=== PATIENT | female | born 1960 | race Caucasian/White ===

== ENCOUNTER 2019-10-04 10:20 | Emergency (ER) | payer OTHER, SELFPAY ==
--- NOTE | ~2019-10-04 | XR_ITS ---
XR ribs RT 2V w CXR 2V DATE: 10/04/2019 11:59 INDICATION: Fall. Right rib pain TECHNIQUE: PA and lateral views. 3 views of the right ribs. COMPARISON: None FINDINGS: Normal heart size. No hilar or mediastinal enlargement. Bilateral apical scarring. No pulmo nary infiltrate or consolidation, pleural effusion or pulmonary vascular congestion or pneumothorax. No recent right rib fracture is evident. There is evidence of old healed mild rib fracture deformitie s. IMPRESSION: No active cardiopulmonary disease No recent rib fracture is evident Reviewed, dictated and finalized at location A. 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
[2019-10-04 10:31] VITALS: BP 133/91; PULSE 80; RESP 16; TEMP 36.4; O2SAT 100
--- NOTE | 2019-10-04 12:30 | ED.FALL ---
HPI - Fall General Chief Complaint: Fall Stated Complaint: RIB PAIN Time Seen by Provider: 10/04/19 12:06 Source: patient and RN notes reviewed Mode of arrival: ambulatory Limitations: no limitations History of Present Illness HPI Narrative: Pt is a 59 y/o female who presents to the ED with c/o worsening rt lower rib pain secondary to a fall happening 4 days ago. She notes that she tripped and fell 4 days ago in her home. Pt states that she was able to get up and walk after the fall. She notes that she developed a mild pain in her rt lower ribs the following day, and states that her pain has constantly worsened ever since. Pt notes that her pain is aggravated with coughing. She states that she has been taking Ibuprofen for her pain. Pt currently denies any fever, chills, nausea, or vomiting. MD complaint: other (Rib pain secondary to fall) Onset (ago): day(s) (4) Fall from: standing Place fall occurred: home Context: tripped/slipped Location of injury: chest (rt lower ribs) Associated symptoms (after fall): chest pain (rt lower rib pain) Related Data Home Medications Medication Instructions Recorded Confirmed atorvastatin 10/04/19 calcium carbonate-vitamin D3 tablet PO 10/04/19 insulin glargine [Basaglar KwikPen unit SUBCUT 10/04/19 U-100 Insulin] insulin lispro [Admelog U-100 10/04/19 Insulin lispro] Allergies Allergy/AdvReac Type Severity Reaction Status Date / Time No Known Allergies Allergy Mild Unverified 04/19/06 14:27 Review of Systems Review of Systems: All systems reviewed & are unremarkable except as noted in HPI and below Constitutional: Constitutional: Denies chills and Denies fever(s) Cardiovascular: Cardiovascular: Reports chest pain (rt lower rib pain) Gastrointestinal: Gastrointestinal: Denies nausea and Denies vomiting PMFSH Past Medical History Medical History Arthritis Brain tumor COPD (chronic obstructive pulmonary disease) Depression Diabetes Emphysema of lung GERD (gastroesophageal reflux disease) HLD (hyperlipidemia) Surgical History Surgical History Hx of craniotomy Hx of tonsillectomy Social History Social History (Updated 10/04/19 @ 13:10 by Arjun Bailey) Smoking packs per day: 0.5 Smoking cigarettes per day: 10.0 Smoking status: Current every day smoker Exam Narrative: Exam Narrative: General appearance: Well-developed, well-nourished Skin: Normal color Head: Normocephalic, nontraumatic Eyes: Clear conjunctiva ENT: Oropharynx normal, ears normal, nose normal Neck: Supple, nontender Chest and respiratory: Airway patent, no respiratory distress, no accessory muscle use, right lower ribs tenderness, no bruises, no swelling or rash Heart: Regular rate/rhythm Abdomen: Soft, nontender, no organomegaly, quiet bowel sounds Vascular: Normal peripheral pulses, normal capillary refill. 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
[2019-10-04 13:37] VITALS: BP 132/74; PULSE 72; RESP 16; O2SAT 100
== END 2019-10-04 13:37 | disposition home or self-care (01) ==
PROVIDERS: Emergency Provider Emergency Medicine; PCP Internal Medicine Gastroenterology
DX: S20.211A Contusion of right front wall of thorax, initial encounter (principal); M19.90 Unspecified osteoarthritis, unspecified site; J43.9 Emphysema, unspecified; E11.9 Type 2 diabetes mellitus without complications; K21.9 Gastro-esophageal reflux disease without esophagitis; E78.5 Hyperlipidemia, unspecified; Z79.4 Long term (current) use of insulin; F17.210 Nicotine dependence, cigarettes, uncomplicated; W01.0XXA Fall on same level from slipping, tripping and stumbling without subsequent striking against object, initial encounter
CPT/HCPCS: 71045; 71101; 99283

== ENCOUNTER 2020-12-21 14:16 | Emergency (ER) | payer OTHER, SELFPAY ==
[2020-12-21 14:41] VITALS: BP 101/54; PULSE 68; RESP 18; TEMP 36.5; O2SAT 98
--- NOTE | 2020-12-21 15:53 | ED.GENADULT ---
HPI - General Adult General Chief complaint: Extremity Injury, Lower Stated complaint: left left/hip pain Time Seen by Provider: 12/21/20 15:20 Source: patient and RN notes reviewed Mode of arrival: ambulatory Limitations: no limitations History of Present Illness HPI narrative: Patient is 60 years old white female presents with pain started at her left foot, 1 day later at the back of left calf 1 day later at the left hip. Sharp stabbing. Patient reported to been doing physical exercise lately. Patient denies any fever, chills, nausea, vomiting, chest pain, shortness of breath. Related Data Home Medications Medication Instructions Recorded Confirmed atorvastatin 10/04/19 calcium carbonate-vitamin D3 tablet PO 10/04/19 insulin glargine [Basaglar KwikPen unit SUBCUT 10/04/19 U-100 Insulin] insulin lispro [Admelog U-100 10/04/19 Insulin lispro] insulin lispro 100 unit/mL 1 unit SUBCUT QAM 08/07/20 subcutaneous pen Allergies Allergy/AdvReac Type Severity Reaction Status Date / Time No Known Allergies Allergy Mild Verified 12/21/20 15:17 Review of Systems Review of Systems: Narrative: CONSTITUTIONAL: Denies fever, chills, or sweats. EYES: Denies visual changes, redness, or discharge. ENT: Denies rhinorrhea, congestion, sore throat, or otalgia. CARDIOVASCULAR: Denies chest pain, palpitations, or edema. RESPIRATORY: Denies cough or dyspnea. GASTROINTESTINAL: Denies abdominal pain, nausea, vomiting, or diarrhea. GENITOURINARY: Denies dysuria or hematuria. SKIN: Denies rash or itching. MUSCULOSKELETAL: Denies back pain, joint pain, or myalgia. NEUROLOGIC: Denies headache, numbness, or weakness. PSYCHIATRIC: Denies anxiety or depression. [facility] Past Medical History Medical History Arthritis Brain tumor COPD (chronic obstructive pulmonary disease) Depression Diabetes Emphysema of lung GERD (gastroesophageal reflux disease) HLD (hyperlipidemia) Surgical History Surgical History Hx of craniotomy Hx of tonsillectomy Social History Social History Smoking packs per day: 0.5 Smoking cigarettes per day: 10.0 Smoking status: Current every day smoker Second hand tobacco smoke exposure: No Alcohol intake: never Substance use: never Gender identity (if verbalized by the patient): Female Exam Narrative: Exam Narrative: General appearance: Well-developed, well-nourished Skin: Normal color Head: Normocephalic, nontraumatic Eyes: Clear conjunctiva ENT: Oropharynx normal, ears normal, nose normal Neck: Supple, nontender Chest and respiratory: Airway patent, no respiratory distress, no accessory muscle use Heart: Regular rate/rhythm Abdomen: Soft, nontender, no organomegaly, quiet bowel sounds Vascular: Normal peripheral pulses, normal capillary refill. 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
[2020-12-21 17:15] LABS: D Dimer 0.34 ug/mL (<0.48)
[2020-12-21 17:26] VITALS: BP 115/64; PULSE 67; RESP 19; O2SAT 100
== END 2020-12-21 17:27 | disposition home or self-care (01) ==
PROVIDERS: Emergency Provider Emergency Medicine; PCP Internal Medicine Gastroenterology
DX: M79.672 Pain in left foot (principal); M19.90 Unspecified osteoarthritis, unspecified site; E11.9 Type 2 diabetes mellitus without complications; Z79.4 Long term (current) use of insulin; J43.9 Emphysema, unspecified; K21.9 Gastro-esophageal reflux disease without esophagitis; E78.5 Hyperlipidemia, unspecified; F17.210 Nicotine dependence, cigarettes, uncomplicated
CPT/HCPCS: 36415; 85380; 99283

== ENCOUNTER 2022-11-18 12:30 | Outpatient (CLI) | payer OTHER, SELFPAY ==
--- NOTE | ~2022-11-18 | MM_ITS ---
EXAMINATION: MM stereotactic bx LT, MM post biopsy diagnostic LT, MM stereotactic specimen LT, Specim en Radiograph, Tissue Marker Clip Placement, Unilateral Mammogram DATE: 11/18/2022 14:17 INDICATION: Abnormal mammogram: Upper outer quadrant grouped microcalcifications. TECHNIQUE AND FINDINGS: The risks and potential benefits of the procedure were discussed with the patient and written informe d consent was obtained. Timeout procedure was performed. The patient was placed in the prone position on the dedicated stereotactic table with the left breast in lateral medial compression, and the area of interest was localized and targeted utilizing digital imaging with stereotaxis. After sterile preparation of the skin, 1% lidocaine was utilized for local anesthesia at the skin pun cture site and 2% lidocaine with epinephrine was utilized for deeper local anesthesia/is about the bi opsy site. A 9G Style Jukebox vacuum assisted biopsy needle was advanced to the level of the calcification o f interest from a lateral approach utilizing stereotactic guidance and a total of 12 tissue core biop sies were obtained. A specimen radiograph demonstrates that the calcifications of interest are included within the tissue cores. A tissue marker clip was then placed at the biopsy site. A digital mammographic exposure co nfirmed the successful deployment of the biopsy marker. The needle was removed and hemostasis was ac hieved. A sterile bandage was applied. The patient tolerated the procedure well and there is no dawson dence of significant immediate complication. The patient was given verbal as well as written postpro cedural instructions prior to discharge from the department. Tissue cores were submitted to surgical pathology for histologic analysis. A 2-view left unilateral digital mammogram was obtained post procedure, demonstrating the tissue fang er clip in expected position. IMPRESSION: 1. Successful stereotactic biopsy of left upper outer quadrant microcalcifications, followed by tis sarai marker clip placement. Please refer to pathology report for histologic analysis. Reviewed, dictated and finalized at Location [facility]. Reviewed, dictated and finalized at location A. IMPRESSION: 1. Successful stereotactic biopsy of left upper outer quadrant microcalcifica tions, followed by tissue marker clip placement. Please refer to pathology rep ort for histologic analysis. IMPRESSION: 1. Successful stereotactic biopsy of left upper outer quadrant microcalcifica tions, followed by tissue marker clip placement. Please refer to pathology rep ort for histologic analysis.
== END 2022-11-18 12:31 | disposition home or self-care (01) ==
PROVIDERS: PCP Internal Medicine Gastroenterology; Visit Provider Physician Assistant
DX: R92.1 Mammographic calcification found on diagnostic imaging of breast (principal); N60.12 Diffuse cystic mastopathy of left breast
CPT/HCPCS: 19081; 77065; 88305

== ENCOUNTER 2023-07-13 12:19 | Outpatient (CLI) | payer OTHER, SELFPAY | END 2023-07-13 12:20 | disposition home or self-care (01) | LOC: ANHAUDIO 12:24 | PROVIDERS: PCP Internal Medicine Gastroenterology; Visit Provider Otolaryngology | DX: H90.6 Mixed conductive and sensorineural hearing loss, bilateral (principal) | CPT/HCPCS: 92557; 92567 ==

== ENCOUNTER 2025-05-20 15:25 | Inpatient (IN) | payer OTHER, SELFPAY ==
--- OUTSIDE RECORDS SUMMARY | 2009-02-18 09:00 | XMS_ITS | Continuity of Care Document ---
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 [address] [address], [place], [place], [facility], [place]. tel:[phone] Office/outpat ient Visit, Est [facility], [address] [place] [address] [address], [place], [place], [id number], tel:[phone] [facility] No Information 0-200 8 Krishnasamy Gil. [address] [facility] [address], [place], [address], [place]. tel:[phone] Referring Provider: Usman Potter [address] [place] [address] [address], [place], [place], [facility]. tel:[phone] Family History Family Member Type Diagnosis Age At Onset No Information Payers Payer name Insurance type Covered republican ID Authoriza tion(s) Medicaid [facility] [id number] Social History Type Description Quantity Date Captured Comments Sex Female Smoking Status No Information Chief Complaint And Reason For Visit No Information Reason For Referral Reason For Referral No Information History Of Present Illness Encounter Date Complaint History Of Prese nt Illness No Information Functional Status Date Functional Assessmen t No Information Instructions Date Instruction Additional Infor mation No Information Assessments Type Assessment Date No Information Patient Care Teams Name Effective Dates (start - stop) Status Members No Information
--- OUTSIDE RECORDS SUMMARY | 2009-02-18 09:00 | XMS_ITS | Continuity of Care Document ---
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 [address] [address], [place], [place], [facility], [place]. tel:[phone] Office/outpat ient Visit, Est [facility], [address] [place] [address] [address], [place], [place], [id number], tel:[phone] SEC [facility] No Information 0-200 8 Krishnasamy Gil. [address] [facility] [address], [place], [address], [place]. tel:[phone] Referring Provider: Usman Potter [address] [place] [address] [address], [place], [place], [facility]. tel:[phone] Family History Family Member Type Diagnosis Age At Onset No Information Payers Payer name Insurance type Covered constitution party ID Authoriza tion(s) Medicaid [facility] [id number] Social History Type Description Quantity Date Captured [...]
[2025-05-20] VITALS (22 sets, daily range): BP systolic 118–138; BP diastolic 62–88; PULSE 54–76; RESP 10–19; TEMP 36.3–36.7; O2SAT 98–100; BMI 22.3
--- NOTE | ~2025-05-20 | CT_ITS ---
EXAMINATION: CT IAC/mastoids BI w con DATE: 05/20/2025 19:03 INDICATION: Mastoid pain. TECHNIQUE: Computed tomography (CT) of the temporal bones was performed with 100 mL Omnipaque 350 intravenous contrast. Automated exposure control and iterative reconstruction technique were employed. The dose-length product was 214.02 mGy-cm. COMPARISON: Head CT 05/20/2025 FINDINGS: There is a 1.6 x 0.9 cm enhancing extra-axial mass at the right frontal falx, consistent with a meningioma. RIGHT TEMPORAL BONE: The internal auditory canal, cochlea, vestibule, semicircular canals, vestibular aqueduct, carotid canal, jugular bulb, facial nerve course, ossicles, Prussak space, scutum, tympanic membrane, and external auditory canal are normal. There is a small right mastoid effusion. LEFT TEMPORAL BONE: The internal auditory canal, cochlea, vestibule, semicircular canals, vestibular aqueduct, jugular bulb, carotid canal, facial nerve course, ossicles, Prussak space, scutum, tympanic membrane, and external auditory canal are normal. There is a left mastoid effusion. IMPRESSION: 1. 1.6 cm right parafalcine meningioma. 2. Bilateral mastoid effusions. Reviewed, dictated and finalized at location K.
--- NOTE | ~2025-05-20 | CT_ITS ---
EXAMINATION: CT brain wo con DATE: 05/20/2025 17:46 INDICATION: Headache. TECHNIQUE: Computed tomography (CT) of the head was performed without intravenous contrast. The mA was adjusted according to patient size. Iterative reconstruction technique was employed. The dose-length product was 605.33 mGy-cm. COMPARISON: None FINDINGS: There is an old infarct in right occipital lobe. There is an old infarct centered in left parietal lobe with involvement of adjacent left frontal, temporal, and occipital lobes. There is no intracranial hemorrhage, acute infarction, or abnormal intracranial mass lesion. There is ex vacuo dila tation of left lateral ventricle. The orbits are normal. There is mild mucosal thickening in the paranasal sinuses. There are bilateral mastoid effusions. There are changes of left-sided craniotomy. IMPRESSION: 1. 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 Old infarct in the right occipital lobe. Reviewed, dictated and finalized at location K.
--- NOTE | 2025-05-20 16:48 | ED.HA ---
HPI - Headache General Chief Complaint: Headache Stated Complaint: headache x3-4 days Time Seen by Provider: 05/20/25 16:28 Source: patient and RN notes reviewed Mode of arrival: EMS Limitations: no limitations History of Present Illness HPI Narrative: Patient presents to the emergency department initially reported as having headache however she denies it is a headache. Rather, she is experiencing intermittent shapr pain just behind her right ear. She denies any earache. No fevers. She states she only became chilled while here in the ED. she has a history of a brain surgery at 19 years old although does not know why and has not had issues since, does not follow regularly with anyone for this. She notes that this pain is increasing in intensity and frequency. In regards to vision changes, she states that she believes that she needs new glasses however she denies any flashes, floaters, blurred vision or diplopia. She is not on anticoagulation. She denies any eye pain. She denies any hearing changes, although my mom thinks so.No trauma. She has been taking 600 mg ibuprofen at home which she states helps. Related Data Home Medications ?Medication ?Instructions ?Recorded ?Confirmed ?Last Taken ?Type atorvastatin 10 mg tablet 10/04/19 05/12/23 Unknown History calcium 600 mg (as tablet PO 10/04/19 05/12/23 Unknown History carbonate)-vitamin D3 10 mcg (400 unit) tablet insulin glargine 100 unit/mL (3 unit subcut 10/04/19 05/12/23 Unknown History mL) subcutaneous pen (Basaglar KwikPen U-100 Insulin) insulin lispro 100 unit/mL 1 unit subcut [facility] 08/07/20 05/12/23 Unknown History subcutaneous pen (Admelog SoloStar U-100 Insulin lispro) Allergies Allergy/AdvReac Type Severity Reaction Status Date / Time No Known Allergies Allergy Mild Verified 05/20/25 16:57 [facility] Past Medical History Medical History (Updated 05/21/25 @ 08:47 by Angelica Thompson DO) Chronic nonallergic rhinitis Mixed hearing loss, bilateral Intellectual disability Brain tumor Depression Arthritis Emphysema of lung Diabetes HLD (hyperlipidemia) GERD (gastroesophageal reflux disease) COPD (chronic obstructive pulmonary disease) Surgical History Surgical History Hx of tonsillectomy Hx of craniotomy Family History Family History (Updated 05/21/25 @ 08:33 by Angelica Thompson DO) Father Heart disease Social History Social History (Updated 05/21/25 @ 08:41 by Angelica Thompson DO) Social History: Code status: Full code Guardian/healthcare power of city attorney: Mother Smoking packs per day: 1 Smoking cigarettes per day: 20.0 Years smoked: 35 Smoking pack-years: 35.00 Smoking status: Current every day smoker Tobacco type: cigarettes Second hand tobacco smoke exposure: No Alcohol intake: never Substance use: never Substance use type: does not use Lack of Transportation: No Lack of Food: Never True Current Housing: I Have Housing Concerned About Future Housing: No Difficulty Paying Gas/Electric Bills: No Difficulty Paying for Meds: No Currently Unemployed: No Education: High School Diploma/GED Difficulty w/ Childcare or Family Care: No Gender identity (if verbalized by the patient): Female Spiritual care concerns: No Exam Narrative: GENERAL: Well-appearing, well-nourished, and in no acute distress. HEAD: Atraumatic. Erythema, edema, and tenderness to palpation of the right mastoid. EYES: Non injected, non icteric ENT: Nares clear, no rhinorrhea or epistaxis. Gross auditory acuity intact. There is some dry cerumen in the right ear although able to easily visualize the tympanic membrane which has perhaps a very slight effusion however it is not bulging and there is no erythema. No vesicles. Patient has no tenderness to palpation of the pinna/auricle. NECK: Supple. No meningismus. CHEST: Speaking in full sentences. No respiratory distress. HEART: Regular rate and rhythm. ABDOMEN: Soft, nondistended. No rigidity or guarding. Not peritoneal EXTREMITIES: Normal range of motion. No lower extremity edema. SKIN: Warm, dry, no rash. NEURO: No focal deficits. Alert and oriented. Answering questions. Following commands. Normal speech without aphasia or dysarthria. PSYCH: Congruent mood and affect. Course Vital Signs Vital signs: Vital Signs Temperature 98.1 F 05/20/25 15:41 Pulse Rate 76 05/20/25 15:41 Respiratory Rate 16 05/20/25 15:41 Blood Pressure 118/66 05/20/25 15:41 Pulse Oximetry 100 05/20/25 15:41 Oxygen Delivery Room Air 05/20/25 15:41 Temperature 97.6 F 05/21/25 04:50 Pulse Rate 55 L 05/21/25 04:50 Respiratory Rate 18 05/21/25 04:50 Blood Pressure 112/63 05/21/25 04:50 Pulse Oximetry 99 05/21/25 04:50 Oxygen Delivery Room Air 05/20/25 16:50 MDM - Headache MDM Narrative Medical decision making narrative: Patient presents with pain behind her right ear. In the emergency department they are afebrile with vital signs within normal limits. Differential diagnoses: Mastoiditis, auricular hematoma auricular perichondritis, herpes zoster; trauma; otitis media; otitis externa She has a leukocytosis. Hyperglycemia is without anion gap or acidosis. Sodium corrects to 140 (still normal) in the setting of this. CT scans as below. Although patient has a reassuring middle ear exam which is somewhat unusual, given the bilateral effusions and concern for mastoiditis, I did discuss with photographic double specialty finishing utility person Dr Villela. He does request that I would prefer a dedicated TMJ examination on the right side. I attempted this the 1st time and patient has no tenderness with this maneuver. She continues to have tenderness with palpation the mastoid. When I then repeated the TMJ examination she notes that perhaps she has some tenderness in this area. Nevertheless, ENT does recommend, given the findings and WBC, that reasonable to start IV antibiotics and notes that this is probably a 48 hour admission. Initially patient is concerned about staying stating that she needs her phone and needs her medications. I informed her that she would receive her home medications while hospitalized. She would like her mother and daughter updated and to speak to them. I called patient's mother Mariaelena Pettit [phone] and updated her; does feel she should stay. Got her daughter's number, Dana, who also believes she should stay. Registration to add daughter's number to contact information in chart. Patient was then assisted to a phone to discuss with her daughter. Amenable to staying. Discussed with specialty finishing utility person hospitalist Dr Thompson. Differential Diagnosis Differential diagnosis: Likely other Lab Data Attestation: I reviewed the patient's lab results. 05/21/25 05:41 05/21/25 05:41 Labs: Lab Results 05/20/25 05/20/25 05/20/25 Range/Units 17:59 18:09 20:34 WBC 14.0 H (4.5-10.0) K/mm3 RBC 4.67 (4.2-5.4) M/mm3 Hgb 13.8 (12.0-15.0) g/dL Hct 41.8 (37.0-47.0) % MCV 89.5 (80-100) fl MCH 29.6 (26-34) pg MCHC 33.0 (32-36) g/dl RDW 13.8 (11.5-14.5) % Plt Count 324 (150-375) k/mm3 MPV 9.3 (7.4-10.4) fl Immature Gran % (Auto) 0.6 H (0-0.5) % Neut % (Auto) 67.5 (45.5-73.1) % Lymph % (Auto) 22.1 (18.3-44.2) % Swain % (Auto) 7.4 (2.6-8.5) % Eos % (Auto) 1.5 (0-4.4) % Baso % (Auto) 0.9 (0.2-1.2) % Lymph # (Auto) 3.09 (0.9-3.2) K/mm3 Swain # (Auto) 1.0 H (0.1-0.6) K/mm3 Eos # (Auto) 0.2 (0-0.3) K/mm3 Baso # (Auto) 0.1 (0.0-0.1) K/mm3 Abs Immat Gran (auto) 0.08 H (0.00-0.031) K/mm3 Absolute Neuts (auto) 9.4 H (1.3-6.7) K/mm3 Absolute Nucleated RBC 0.000 (0.0-0.012) K/mm3 Nucleated RBC % 0.0 (0.0-0.2) % ESR 16 (0-20) mm/hr Sodium 138 (137-145) mmol/L Potassium 4.0 (3.4-5.0) mmol/L Chloride 102 (98-107) mmol/L Carbon Dioxide 32 H (22-30) mmol/L Anion Gap 4 (4-12) mmol/L BUN 16 (7-17) mg/dL Creatinine 0.54 L (0.7-1.0) mg/dL Estim Creat Clear Calc 81 ml/min Estimated GFR > 60 (59 - ) Glucose 199 H (65-110) mg/dL POC Capillary Glucose 194 H 167 H (65-105) mg/dl Hemoglobin A1c Calcium 9.3 (8.4-10.2) mg/dL C-Reactive Protein 1.1 (<1.0) mg/dL Nasal MRSA (PCR) (NOT DETECTE) 05/20/25 05/20/25 05/21/25 Range/Units 20:37 23:41 05:23 WBC (4.5-10.0) K/mm3 RBC (4.2-5.4) M/mm3 Hgb (12.0-15.0) g/dL Hct (37.0-47.0) % MCV (80-100) fl MCH (26-34) pg MCHC (32-36) g/dl RDW (11.5-14.5) % Plt Count (150-375) k/mm3 MPV (7.4-10.4) fl Immature Gran % (Auto) (0-0.5) % Neut % (Auto) (45.5-73.1) % Lymph % (Auto) (18.3-44.2) % Swain % (Auto) (2.6-8.5) % Eos % (Auto) (0-4.4) % Baso % (Auto) (0.2-1.2) % Lymph # (Auto) (0.9-3.2) K/mm3 Swain # (Auto) (0.1-0.6) K/mm3 Eos # (Auto) (0-0.3) K/mm3 Baso # (Auto) (0.0-0.1) K/mm3 Abs Immat Gran (auto) (0.00-0.031) K/mm3 Absolute Neuts (auto) (1.3-6.7) K/mm3 Absolute Nucleated RBC (0.0-0.012) K/mm3 Nucleated RBC % (0.0-0.2) % ESR (0-20) mm/hr Sodium (137-145) mmol/L Potassium (3.4-5.0) mmol/L Chloride (98-107) mmol/L Carbon Dioxide (22-30) mmol/L Anion Gap (4-12) mmol/L BUN (7-17) mg/dL Creatinine (0.7-1.0) mg/dL Estim Creat Clear Calc ml/min Estimated GFR (59 - ) Glucose (65-110) mg/dL POC Capillary Glucose 350 H (65-105) mg/dl Hemoglobin A1c Pending Calcium (8.4-10.2) mg/dL C-Reactive Protein (<1.0) mg/dL Nasal MRSA (PCR) Not detected (NOT DETECTE) 05/21/25 Range/Units 05:41 WBC 10.7 H (4.5-10.0) K/mm3 RBC 4.34 (4.2-5.4) M/mm3 Hgb 12.7 (12.0-15.0) g/dL Hct 40.6 (37.0-47.0) % MCV 93.5 (80-100) fl MCH 29.3 (26-34) pg MCHC 31.3 L (32-36) g/dl RDW 13.8 (11.5-14.5) % Plt Count 251 (150-375) k/mm3 MPV 9.9 (7.4-10.4) fl Immature Gran % (Auto) 0.6 H (0-0.5) % Neut % (Auto) 58.4 (45.5-73.1) % Lymph % (Auto) 28.9 (18.3-44.2) % Swain % (Auto) 8.4 (2.6-8.5) % Eos % (Auto) 2.5 (0-4.4) % Baso % (Auto) 1.2 (0.2-1.2) % Lymph # (Auto) 3.08 (0.9-3.2) K/mm3 Swain # (Auto) 0.9 H (0.1-0.6) K/mm3 Eos # (Auto) 0.3 (0-0.3) K/mm3 Baso # (Auto) 0.1 (0.0-0.1) K/mm3 Abs Immat Gran (auto) 0.06 H (0.00-0.031) K/mm3 Absolute Neuts (auto) 6.2 (1.3-6.7) K/mm3 Absolute Nucleated RBC 0.000 (0.0-0.012) K/mm3 Nucleated RBC % 0.0 (0.0-0.2) % ESR (0-20) mm/hr Sodium 133 L (137-145) mmol/L Potassium 4.4 (3.4-5.0) mmol/L Chloride 108 H (98-107) mmol/L Carbon Dioxide 22 (22-30) mmol/L Anion Gap 3 L (4-12) mmol/L BUN 14 (7-17) mg/dL Creatinine 0.47 L (0.7-1.0) mg/dL Estim Creat Clear Calc 91 ml/min Estimated GFR > 60 (59 - ) Glucose 225 H (65-110) mg/dL POC Capillary Glucose (65-105) mg/dl Hemoglobin A1c Calcium 8.7 (8.4-10.2) mg/dL C-Reactive Protein (<1.0) mg/dL Nasal MRSA (PCR) (NOT DETECTE) Imaging Data Radiologist's impression: Impressions Head CT 05/20/25 17:48 IMPRESSION: 1. 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 Old infarct in the right occipital lobe. Internal Auditory Canal CT 05/20/25 19:06 IMPRESSION: 1. 1.6 cm right parafalcine meningioma. 2. Bilateral mastoid effusions. Discharge Plan Discharge Clinical Impression: Pain of right mastoid, Hyperglycemia due to diabetes mellitus, Meningioma, Other mastoiditis and related conditions, right ear Leukocytosis Qualifiers: Leukocytosis type: unspecified Qualified Code(s): D72.829 - Elevated white blood cell count, unspecified Patient Disposition: Still a Patient Condition: Stable
[2025-05-20] MEDS: ACETAMINOPHEN 325 MG TABLET 650 MG PO (17:52)
[2025-05-20 18:06] LABS: Hematocrit 41.8 % (37.0-47.0); Hemoglobin 13.8 g/dL (12.0-15.0); Immature Granulocyte Percent A 0.6 % (0-0.5); Lymphocytes Absolute Auto 3.09 K/mm3 (0.9-3.2); Mean Corpuscular HGB Conc 33.0 g/dl (32-36); Mean Corpuscular Hemoglobin 29.6 pg (26-34); Mean Corpuscular Volume 89.5 fl (80-100); Nucleated Red Blood Cells Absolute Auto 0.000 K/mm3 (0.0-0.012); Nucleated Red Blood Cells Perc 0.0 % (0.0-0.2); Platelet Count Result 324 k/mm3 (150-375); Red Blood Count 4.67 M/mm3 (4.2-5.4); White Blood Count 14.0 K/mm3 (4.5-10.0)
--- OUTSIDE RECORDS SUMMARY | 2025-05-20 18:13 | XMS_ITS | Clinical Summary ---
Author Organization [facility] Address [address] [place] [address] Care Team Providers Care Corporate Tax Manager Name Role Phone Carmel Heard MD Primary Care Provider [phone] Source Comments [facility],non-owned Affiliates and Associated Physician Practices is amultiple site organization consisting of ambulatory clinics and hospital sitesin [place], [place], [place] and [place]. This disclosure is being madepursuant to the Care Everywhere program and may not contain all informatio navailable regarding this patient. Last updated 18.[facility] Allergies Active Allergy Reactions Criticality Noted Date Comments Olopatadine Nausea and/or Vomiting 08/24/2024 Medications * This document contains information received from the source organization and may not represent a complete record from that organization. * Be aware that medications may not be up to date on this document. Alwaysverify current medications with the patient. PROAIR HFA 108 (90 BASE) MCG/ACT inhaler Inhale 1 (one) puff by mouth every 4 hours as needed 01/04/20 18 Active aspirin (ASPIRIN) 81 MG chew tabletIndications: Type 1 diabetes mellitus with hyperglycemia (HCC) Take 1 (one) tablet by mouth once daily Active fluticasone propionate (FLONASE) 50 MCG/ACT nasal spray [place] 1 (one) spray into each nostril once daily 01/11/20 18 Active Calcium Citrate-Vitamin D (CALCIUM + D PO) Take 1 tablet by mouth once daily Active B-D ULTRA FINE LANCETS MISC DIRECTED Activ e Blood Glucose Monitoring Suppl (ONE TOUCH ULTRA 2) w/Device KIT Use 1 kit as directed 1 kit 04/23/20 19 Active famotidine (PEPCID) 20 MG tablet TK 1 T PO QD 03/03/20 20 Active cetirizine (ZYRTEC) 10 MG tablet Take 1 (one) tablet by mouth once daily as directed. 06/04/20 21 Active Multiple Vitamin (MULTIVITAMIN) TABS Take 1 tablet by mouth once daily 05/07/20 21 Active glucagon (GLUCAGEN) injectionIndicatio ns:Type 1 diabetes mellitus with hyperglycemia (HCC) Inject 1 (one) mg subcutaneously as needed 1 Each 3 06/12/20 21 Active atorvastatin (Lipitor) 20 MG tabletIndications: Mixed hyperlipidemia TAKE 1 TABLET BY MOUTH EVERY DAY 90 tablet 11 02/21/20 24 Active alendronate (Fosamax) 70 MG tablet Take 1 (one) tablet by mouth every 7 days before meal Take in morning with full glass of water on empty stomach and remain upright for 30 min 12 tablet 02/23/20 24 Active OneTouch Ultra test stripIndications:T ype 1 diabetes mellitus with hyperglycemia (HCC) USE FOUR TIMES DAILY 400 strip 3 04/19/20 24 Active HumaLOG KwikPen 100 UNIT/ML penIndications:Typ e 1 diabetes mellitus with hyperglycemia (HCC) Inject 3 (three) Units to 7 (seven) Units subcutaneously 3 times daily before meals MAXIMUM DOSE 21 UNITS PER DAY 15 mL 11 08/09/20 24 Active donepezil (Aricept) 10 MG tablet Take 1 (one) tablet by mouth at bedtime 09/07/19 25 Active Spiriva Respimat 2.5 MCG/ACT inhaler INHALE 2 PUFFS BY MOUTH EVERY DAY 07/11/20 24 Active insulin pen needle (Bd Uf Iii) 31G X 8 MM needleIndications: Type 1 diabetes mellitus with hyperglycemia (HCC) 1 (one) Each 4 times daily 100 Each 11 08/24/20 24 Active Continuous Glucose Sensor ([employer] G7 Sensor) MISCIndications:Ty pe 1 diabetes mellitus with hyperglycemia (HCC) Use 1 device every 10 days 3 Each 11 09/17/19 25 Active Alcohol Swabs 70 % Use 1 Each 4 times daily 200 Each 11 09/20/19 25 Active insulin glargine (Lantus SoloStar) penIndications:Typ e 1 diabetes mellitus with hyperglycemia (HCC) Inject 15 (fifteen) Units subcutaneously every 24 hours 15 mL 11 04/15/20 25 Active Active Problems Problem Noted Date Diagnosed Date Age related osteoporosis 08/23/2019 Otitis media 09/28/2018 Tobacco user 09/28/2018 Hip fracture, right, closed, with routine healing, subsequent encounter 01/16/2016 Hypovitaminosis D 01/16/2016 Cognitive dysfunction 02/13/2015 Intracranial tumor 01/29/2015 Type 1 diabetes mellitus with hyperglycemia 01/04 Resolved Problems Problem Noted Date Diagnosed Date Resolved Date Atrophic vaginitis 09/28/2018 9 Bacterial vaginosis 09/28/2018 09/28/19 19 Chronic obstructive lung disease 09/28/2018 09/28/2018 Itchy eyes 09/28/2018 09/28/2018 Type II diabetes mellitus, uncontrolled 09/28/2018 03/29/2019 Epistaxis 10/02/2017 09/28/2018 Fatigue 02/13/2015 09/28/2018 Encounters Date Type Department Care Team Description 05/09/2025 Telephone [facility] - Endocrinology [address] [place] [phone] Santiago Pizano MD Question 04/15/2025 1:20 PM CDT [facility] [address] [place] [phone] Santiago Pizano MD Type 1 diabetes mellitus with hyperglycemia (HCC) (Primary Dx) 04/15/2025 Travel 03/17/2025 Refill [facility] - Endocrinology [address] [place] [phone] Santiago Pizano MD Refill Request 02/22/2025 Travel from Last 3 Months Immunizations Immunization Administration Dates Next Due FLU VACCINE QUAD IIV4 SPLIT 0.25 ML IM 5 Family History Medical History Relation Name Comments None Known Brother None Known Father None Known Maternal Grandfather None Known Maternal Grandmother None Known Mother None Known Other None Known Paternal Grandfather None Known Paternal Grandmother None Known Sister Alcohol abuse Neg Hx Asthma Neg Hx Dementia Neg Hx Depression Neg Hx Drug Abuse Neg Hx Glaucoma Neg Hx Gout Neg Hx Leukemia Neg Hx Migraine Neg Hx Multiple Sclerosis Neg Hx Other Neg Hx Thyroid Disease Neg Hx Relation Name Status Comments Brother Father Maternal Grandfather Maternal Grandmother Mother Other Paternal Grandfather Paternal Grandmother Sister Social History Tobacco Use Types Packs/Day Years Used Date Smoking Tobacco: Every Day Smokeless Tobacco: Never Tobacco Cessation:Ready to Q uit: Not Asked; Counseling Given: Not Answered Alcohol Use Standard Drinks/Week Comments No 0 (1 standard drink = 0.6 oz pur e alcohol) PHQ-2 Answer Date Recorded PHQ2 TOTAL SCORE 0 04/11/2023 Comments No Sex and Gender Information Value Date Recorded Sex Assigned at Not on file Legal Sex Female 6:25 AM REGISTERED NURSE CARDIOVASCULAR ICU Gender Identity Not on file Sexual Orientation Not on file Last Filed Vital Signs Vital Sign Reading Time Taken Comments Blood Pressure 127/77 04/15/2025 1:07 PM CDT Pulse 87 04/15/2025 1:07 PM CDT Temperature 37 C (98.6 F) 08/18/2023 1:23 PM REGISTERED NURSE CARDIOVASCULAR ICU Respiratory Rate 18 08/18/2023 1:23 PM REGISTERED NURSE CARDIOVASCULAR ICU Oxygen Saturation 96% 04/15/2025 1:07 PM CDT Inhaled Oxygen Concentration - - Weight 62.6 kg (138 lb) 04/15/2025 1:07 PM CDT Height 165.1 cm (5' 5) 04/15/2025 1:07 PM CDT Body Mass Index 22.96 04/15/2025 1:07 PM CDT Plan of Treatment Upcoming Encounters Date Type Department Care Team (Late st Contact Info) Description 10/21/2025 1:00 PM REGISTERED NURSE CARDIOVASCULAR ICU Office Visit [facility] - Endocrinology [address] [place] [address], [place] [phone] Santiago Pizano MD [address] [place] [address] [place] [address] Health Maintenance Due Date Last Done Comments COLOGUARD (AGES 45-75) - COLON CA SCREENING 1962 COLON MONITORING 1962 COLONOSCOPY - COLON CA SCREENING 1962 CT COLONOGRAPHY - COLON CA SCREENING 1962 Colorectal Cancer Screening 1962 FIT - COLON CA SCREENING 1962 FLEX SIG - COLON CA SCREENING 1962 MAMMOGRAM 1962 HIV SCREENING 1977 HEPATITIS C SCREENING 04/19/1980 DTAP/TDAP/TD VACCINES (1 - Tdap) 1981 PNEUMOCOCCAL VACCINE 50+ (1 of 2 - PCV) 1981 PAP with HPV 1992 ZOSTER VACCINE (1 of 2) 2012 DIABETES RETINOPATHY SCREENING 12/05/2017 05/07/2025 BONE DENSITY TESTING 01/26/2021 01/27/2016 Respiratory Syncytial Virus (RSV) Vaccine Pt: or over 60 yrs (1 - Risk 60-74 years 1-dose series) 2022 DIABETES-SERUM CREATININE 07/22/20222020, 07/22/2021, 11/20/2020, Additional history exists DIABETES-FOOT EXAM WITH MONOFILAMENT 04/19/2023 04/19/2022, 03/29/2019, 03/06/2018, Additional history exists DEPRESSION SCREENING 09/05/2024 04/11/2023 DIABETES - URINE PROTEIN SCREENING 09/05/2024 07/22/2021, 05/09/2020, 03/10/2017 COVID-19 VACCINE ( season) 2025 06/17/2022, 12/30/2021, 06/23/2021, Additional history exists INFLUENZA VACCINE (#1) 2025 06/06/2015, 2005 DIABETES-HGB A1C 07/16/2025 04/15/2025, , 02/23/2024, Additional history exists HEPATITIS B VACCINE Aged Out No longe r eligible based on patient's age to complete this topic HIB VACCINE Aged Out No longer eligi ble based on patient's age to complete this topic HPV VACCINE Aged Out No longer eligi ble based on patient's age to complete this topic MENINGOCOCCAL (Group B) VACCINE SHARED DECISION-MAKING Aged Out No longer eligible based on patient's age to complete this topic MENINGOCOCCAL GROUPS A/C/Y/W VACCINE Aged Out No longer eligible based on patient's age to complete this topic Procedures Procedure Name Priority Date/Time Associated Diagnosis Comments EYE EXAM Routine 05/07/2025 10:55 AM CDT LAB RESULTS ORDER 04/19/2025 HEMOGLOBIN A1C - POINT OF CARE (AMB) [facility] Routine 04/15/2025 1:13 PM CDT Type 1 diabetes mellitus with hyperglycemia (HCC) CREATININE BLOOD (EXTERNAL RESULT ENTRY) Routine 07/22/2021 Type 1 diabetes mellitus with hyperglycemia DEXA BONE DENSITY AXIAL SKELETON Routine 01/27/2016 2:40 PM CDT from Last 3 Months or Most Recently Relevant to Health Maintenance Results * EYE EXAM (05/07/2025 10:55 AM CDT) Anatomical Region Laterality Modality Other us Historical Provider SCANNING ONLY Final Res ult * LAB RESULTS ORDER (04/19/2025) 04/19/2025 Narrative 04/19/2025 Ordered by an unspecified provider. us Scanned Document LAB - THERAPEUTIC DRUG MONITORI NG ORDERABLES Final Result * HEMOGLOBIN A1C - POINT OF CARE (AMB) [facility] (04/15/2025 1:13 PM CDT) Pathologist [facility] Hemoglobin A1c POCT 9.0 % [address] BLOOD SPECIMEN / Unknown 04/15/2025 1:13 PM CDT Santiago Pizano MD LAB - POINT OF CARE ORDERABLES Final Result [address], [place] [address], [facility] [phone] * CREATININE BLOOD (EXTERNAL RESULT ENTRY) (07/22/2021) Creatinine (EXTERNAL RESULT) 0.55 mg/dl OUTSIDE REFERENCE LAB Cholesterol (EXTERNAL RESULT) 82 mg/dl OUTSIDE REFERENCE LAB Triglycerides (EXTERNAL RESULT) 80 mg/dl OUTSIDE REFERENCE LAB HDL (EXTERNAL RESULT) 69 OUTSIDE REFERENCE LAB LDL (EXTERNAL RESULT) 97 mg/dl OUTSIDE REFERENCE LAB Hemoglobin A1c (EXTERNAL RESULT) 9.4 % OUTSIDE REFERENCE LAB Urine Albumin/Creatinine Ratio 8 <=30 mg/g OUTSIDE REFERENCE LAB Vitamin D, 25 Hydroxy 36 ng/mL OUTSIDE REFERENCE LAB Blood BLOOD SPECIMEN / Unknown 07/22/2021 us Santiago Pizano MD LAB - CHEMISTRY ORDERABLES Fin al Result OUTSIDE REFERENCE LAB * DEXA BONE DENSITY AXIAL SKELETON (01/27/2016 2:40 PM CDT) Anatomical Region Laterality Modality Other Narrative 01/27/2016 3:50 PM CDT Examination: Dual energy x-ray absorptiometry of the lumbar spine and hip. Clinical Indication: hip fracture. Findings: Detailed data from the exam is sent separately to the ordering physician and is also available on [employer], the Radiology Department's computerized picture archive system Comparison: None. BONE MINERAL DENSITY (BMD) left hip: T score is -1.5, osteopenia. BONE MINERAL DENSITY (BMD) lumbar spine (L1-4): T score is -0.9, normal. FRAX 10 year fracture risk Major osteoporotic fracture: 5.3% (previously ) Hip fracture: 0.3% (previously ) Definitions: T-score = Standard Deviation Normal: A value for bone mineral density (BMD) within 1 standard deviation of the young adult reference mean. (T-score above -1) Low bone mass (osteopenia): A value for bone mineral density(BMD) more than 1 standard deviation below the young adult mean, but less than 2.5 standard deviations below the young adult mean. ( T-score between -1 and -2.5) Osteoporosis: A value for bone mineral density 2.5 standard deviations or more below the young adult mean. ( T-score at or below -2.5) Severe osteoporosis: Osteoporosis + the presence of one or more fragility fractures. Please note that T-score values are important in determining increased risk for fractures. The T-score represents the standard deviation above or below the mean bone mineral density for young adults. With each -1 standard deviation decrease in bone mineral density, the risk for fracture doubles exponentially. A T-score of -1 will double the risk , and -2 will be 4 times the risk. This report was approved by Laurita King on 01/27/2016 2:[address] JACE Odell M.D. have personally reviewed and interpreted this examination/study. This report was electronically signed by JACE DE SANTIAGO M.D. on 01/27/2016 3:50 PM . Procedure Note Jace De Santiago MD - 12/03/2017 Examination: Dual energy x-ray absorptiometry of the lumbar spine andhip. Clinical Indication: hip fracture. Findings: Detailed data from the exam is sent separately to the orderingphysician and is also available on [employer], the Radiology Department'[employer] picture archive system Comparison: None. BONE MINERAL DENSITY (BMD) left hip: T score is -1.5, osteopenia. BONE MINERAL DENSITY (BMD) lumbar spine (L1-4): T score is -0.9, normal. FRAX 10 year fracture risk Major osteoporotic fracture: 5.3% (previously ) Hip fracture: 0.3% (previously ) Definitions: T-score = Standard Deviation Normal: A value for bone mineral density (BMD) within 1 standard deviationof the young adult reference mean. (T-score above -1) Low bone mass (osteopenia): A value for bone mineral density(BMD) morethan 1 standard deviation below the young adult mean, but less than 2.5standard deviations below the young adult mean. ( T-score between -1 and-2.5) Osteoporosis: A value for bone mineral density 2.5 standard deviations ormore below the young adult mean. ( T-score at or below -2.5) Severe osteoporosis: Osteoporosis + the presence of one or more fragilityfractures. Please note that T-score values are important in determining increasedrisk for fractures. The T-score represents the standard deviation above orbelow the mean bone mineral density for young adults. With each -1standard deviation decrease in bone mineral density, the risk for fracture doubles exponentially. A T-score of-1 will double the risk , and -2 will be 4 times the risk. This report was approved by Laurita King on 01/27/2016 2:[address] JACE Odell M.D. have personally reviewed and interpreted thisexamination/study. This report was electronically signed by JACE DE SANTIAGO M.D. on 01/27/20163:50 PM . Santiago CRAVEN ORDERABLES Final Result from Last 3 Months or Most Recently Relevant to Health Maintenance Insurance Care Teams Corporate Tax Manager Relationship Specialty [place] [address] [place], [place] [id number] PCP - General 12/08/22
--- OUTSIDE RECORDS SUMMARY | 2025-05-20 18:13 | XMS_ITS | Clinical Summary ---
Author Organization [facility] Address [address] [place] [address] Care Team Providers Care Recruiting Assistant Name Role Phone Carmel Heard MD Primary Care Provider Allergies Active Allergy Reactions Criticality Noted Date Comments Clindamycin Rash Reaction: Rash, Sulfa (Sulfonamide Antibiotics) Rash Reaction: Rash, Vancomycin Rash Reaction: Rash, Medications albuterol HFA (PROVENTIL HFA,VENTOLIN HFA,PROAIR HFA) 90 mcg/actuation inhaler INHALE 1 PUFF BY MOUTH EVERY 4 HOURS NEEDED Active alcohol swabs pads, medicated BD Alcohol Swabs Active alendronate (FOSAMAX) 70 mg tablet Take 1 tablet (70 mg total) by mouth 4 Active aspirin 81 mg chewable tablet Take 1 tablet (81 mg total) by mouth daily Active atorvastatin (LIPITOR) 20 mg tablet Take 1 tablet (20 mg total) by mouth daily 4 Active OneTouch Ultra Test strip TEST BLOOD SUGAR FOUR TIMES DAILY 4 Active Dexcom G7 Sensor device USE 1 DEVICE EVERY 10 DAYS 4 Active calcium carbonate-vitam in D3 (CALTRATE 600 + D) 1500 mg (600 mg elemental) -400 units per tablet Take 1 tablet by mouth 2 (two) times a day 3 Active calcium carbonate-vitam in D3 1,500 mg (600mg elemental) -800 unit per tablet Take 1 tablet twice a day by oral route. 3 Active cetirizine (ZyrTEC) 10 mg tablet Take 1 tablet (10 mg total) by mouth daily Active diclofenac DR (VOLTAREN) 75 mg EC tablet Take 1 tablet (75 mg total) by mouth 2 (two) times a day Active famotidine (PEPCID) 20 mg tablet Take 1 tablet (20 mg total) by mouth daily Active fluticasone propionate (FLONASE) 50 mcg/actuation nasal spray Administer 1 spray into affected nostril(s) daily 8 Active glucagon 1 mg kit Inject 1 mL (1 mg total) under the skin as needed 1 Active LANTUS 100 unit/mL (3 mL) pen for injection ADMINISTER 18 UNITS UNDER THE SKIN EVERY DAY Active insulin lispro (HumaLOG) 100 unit/mL pen for injection INJECT SUBCUTANEOUS THREE TIMES DAILY WITH MEALS PER SLIDING SCALE(100-150=3U NITS, 151-200=4UNITS, 201-250=5UNITS, 251-300=6UNITS,> 300=7UNITS) 4 Active donepeziL (ARICEPT) 5 mg tablet Take 1 tablet (5 mg total) by mouth nightly 30 tablet 5 Active donepeziL (ARICEPT) 10 mg tablet Take 1 tablet (10 mg total) by mouth nightly 90 tablet 5 Active Active Problems Problem Noted Date Diagnosed Date Hypopituitarism 10/12/2013 Diabetes mellitus 10/12/2013 Pituitary adenoma 10/12/2013 Type 1 diabetes mellitus 06/20/2012 Dyslipidemia 03/26/2011 Encounters Date Type Department Care Team Description 03/04/[address] [facility] Neurology [address] [place] [phone] Aretha Marvin NP Additional Services Or Orders from Last 3 Months Immunizations Immunization Administration Dates Next Due Influenza, Trivalent, Preservative Free, Intramu scular 07/09/2006 Pneumococcal Polysaccharide PPV23 07/09/2005 Surgical History Surgery Date Site/Laterality Comments [place] LIG/TRNSXJ FLP TUBE ABDL/ VAG APPR UNI/BI Tubal Ligation - (Added by [facility] Conv) [place] CRANIECTOMY W/EXCISION TUMOR/OTH BONE LESION SKL Craniotomy Tumor Removal - Complete - Age 19 (Added by [facility] Conv) Medical History Medical History Date Comments Personal history of other sp ecified conditions History of brain tumor - at 19 y/o - resected (Added by TW Conv) Family History Medical History Relation Name Comments Cancer Other Cancer - grandm other -lung (Added by TW Conv) Diabetes type II Other Type II Xiomy betes Mellitus - father, brother, grandmother (Added by TW Conv) Heart disease Other Heart Disease - father (Added by TW Conv) Hypertension Other Hypertension - multiple family members (Added by TW Conv) Relation Name Status Comments Other Social History Tobacco Use Types Packs/Day Years Used Date Smoking Tobacco: Every Day Tobacco Cessation:Ready to Q uit: Not Asked; Counseling Given: Not Answered Comments Unknown Sex and Gender Information Value Date Recorded Sex Assigned at Not on file Legal Sex Female 1:21 AM MAORI LIAISON ADVISER Gender Identity Not on file Sexual Orientation Not on file Obstetrics History Last Filed Vital Signs Vital Sign Reading Time Taken Comments Blood Pressure 120/60 12/04/2024 10:14 AM CDT Pulse 88 12/04/2024 10:14 AM CDT Temperature - - Respiratory Rate 20 12/04/2024 10:14 AM CDT Oxygen Saturation 100% 12/04/2024 10:14 AM CDT Inhaled Oxygen Concentration - - Weight 63.5 kg (140 lb) 12/04/2024 10:14 AM CDT Height 167.6 cm (5' 6) 12/04/2024 10:14 AM CDT Body Mass Index 22.6 12/04/2024 10:14 AM CDT Plan of Treatment Health Maintenance Due Date Last Done Comments Albumin Creatinine Ratio, Urine 1962 Breast Cancer Screening-Mammogram 1962 Cervical Cancer Screening 1962 Colon Cancer Screening-Colonoscopy 1962 Depression Screening 1962 Foot Exam 1962 Hepatitis C Screening 1962 TSH Level 1962 eGFR 1962 Dilated Eye Exam 1972 Regular Well Visit/Exam 18-64 1980 Pneumococcal vaccine <65 (2 of 2 - PCV) 07/09/2006 07/09/2005 DTaP/Tdap/Td Vaccine (1 - Tdap) 08/03/2012 2 Lipid Panel 04/06/2014 04/06/2013 Hemoglobin A1C 04/02/2018 10/03/2017 Covid-19 Vaccine (9 - 5-2 6 season) 2025 05/27/2023, 06/17/2022, 06/16/2022, Additional history exists Influenza Vaccine (#1) 2025 , 06/16/2022, 05/29/2021, Additional history exists Hepatitis B Screening Completed 09/13/2012, 012 Zoster Vaccine Completed 11/23/2021, 09/08/2021 Procedures Procedure Name Priority Date/Time Associated Diagnosis Comments SERUM LIPID PANEL Routine 04/06/2013 1:5 5 PM CDT from Last 3 Months or Most Recently Relevant to Health Maintenance Results * Serum lipid panel (04/06/2013 1:55 PM CDT) Cholesterol 163 0 - 200 mg/dl HISTORICAL RESULTS Comment: Interpretive Data Desirable: <200 mg/dL Borderline high: 200-239 mg/dL High: >240 mg/dL Literature Reference: National Cholesterol Education Program (NCEP) Expert Panel on Detection, Evaluation, and Treatment of High Blood Cholesterol in Adults (Adult Treatment Panel III). Circulation 2004; 110:227. Current interpretive data was last revised on 2005. Triglycerides 76 0 - 150 mg/dl HISTORICAL RESULTS Comment: Interpretive Data Desirable: < 150 mg/dL Borderline High: 150 - 199 mg/dL High: > 200 mg/dL Literature Reference: See Cholesterol Current interpretive data was last revised on 07. HDL 84 40 - 199 mg/dl HISTORICAL RESULTS Comment: Interpretive Data Less than 40 mg/dL - low; A major risk factor for heart disease. Greater than or equal to 60 mg/dL - High; considered protective of heart disease. Literature Reference: See Cholesterol Current interpretive data was last revised on 2008. LDL 64 0 - 129 mg/dl HISTORICAL RESULTS Comment: Interpretive Data Optimal: < 100 mg/dL Near Optimal: 100 - 129 mg/dL Borderline High: 130 - 159 mg/dL High: > 160 mg/dL Literature Reference: See Cholesterol Current interpretive data was last revised on 07. Non-HDL cholesterol, calculated 79 mg/dl HISTORICAL RESULTS Comment: Interpretive Data When triglycerides are >200 mg/dL, non-HDL C is a secondary target of therapy, with a goal 30 mg/dL higher than the identified LDL-C goal. Reference: See Cholesterol Reference. Current interpretive data was last revised 2012. Serum 04/06/2013 1:55 PM CDT us Historical Provider LAB BLOOD ORDERABLES Mouna whiting Result HISTORICAL RESULTS from Last 3 Months or Most Recently Relevant to Health Maintenance [place] [address] [place] [address] Care Teams Recruiting Assistant Relationship Specialty Start Date End Date Carmel Heard MD [address] [place] [address] PCP - General Gastroenterology 03/12/24
--- OUTSIDE RECORDS SUMMARY | 2025-05-20 18:13 | XMS_ITS | Encounter Summary ---
Author Organization [facility] Address [address] [place] [address] Care Team Providers Care Clerk To Justice Name Role Phone Carmel Heard MD Primary Care Provider Encounter Details Date Type Department Care Team (Late Contact Info) Description 05/03/2023 Telephone [facility] - Centralized Scheduling [address] [place] [phone] Carrie Porter RN Social History Tobacco Use Types Packs/Day Years Used Date Smoking Tobacco: Every Day Smokeless Tobacco: Never Alcohol Use Standard Drinks/Week Comments No 0 (1 standard drink = 0.6 oz pur e alcohol) PHQ-2 Answer Date Recorded PHQ2 TOTAL SCORE 0 04/11/2023 Comments No Sex and Gender Information Value Date Recorded Sex Assigned at Not on file Legal Sex Female 6:25 AM LENS EXAMINER Gender Identity Not on file Sexual Orientation Not on file documented as of this encounter Plan of Treatment Upcoming Encounters Date Type Department Care Team (Late Contact Info) Description 10/21/2025 1:00 PM LENS EXAMINER Office Visit [facility] - Endocrinology [address] [place] [address], [facility] [place] [phone] Santiago Pizano MD [address] [place] [phone] documented as of this encounter Visit Diagnoses Not on filedocumented in this encounter Care Teams Clerk To Justice Relationship Specialty Start Date End Date Carmel Heard MD [address] [place] [phone] PCP - General 12/08/22 documented as of this encounter
--- OUTSIDE RECORDS SUMMARY | 2025-05-20 18:13 | XMS_ITS | Encounter Summary ---
Author Organization [facility] Address [address] [address] Care Team Providers Care Per Assessment Nurse Name Role Phone Jose G Hart MD Primary Care Provider [phone] Carmel Heard MD Primary Care Provider [phone] Encounter Details Date Type Department Care Team (Late st Contact Info) Description 05/14/2019 Telephone [facility] [address] [place] [address] Santiago Pizano MD [facility] [address] [place] [address] Social History Tobacco Use Types Packs/Day Years Used Date Smoking Tobacco: Every Day Smokeless Tobacco: Never Alcohol Use Standard Drinks/Week Comments No 0 (1 standard drink = 0.6 oz pur e alcohol) Comments No Sex and Gender Information Value Date Recorded Sex Assigned at Not on file Legal Sex Female 6:25 AM PLASTICS FABRICATION SUPERVISOR Gender Identity Not on file Sexual Orientation Not on file documented as of this encounter Miscellaneous Notes * Telephone Encounter - Nicole David - 05/14/2019 2:30 PM CDT Current Provider name:DR. PIZANO Reason for call: PT CALLED IN ABOUT THE INV- [facility]. NO ONE HAS CALLED HER. THE [facility]FUSION CENTER STATES THAT THEY NEED ORDERS FAXED TO [phone]. Patient Call Back number: [phone] documented in this encounter Plan of Treatment Upcoming Encounters Date Type Department Care Team (Late st Contact Info) Description 10/21/2025 1:00 PM PLASTICS FABRICATION SUPERVISOR Office Visit [facility] - Endocrinology [address] [place] [address], [place] [address] Santiago Pizano MD [address] [place] [address] 2L Div [place] [address] documented as of this encounter Visit Diagnoses Diagnosis Hip fracture, right, closed, with routine healing, subsequent encounter- Primary documented in this encounter Care Teams Per Assessment Nurse Relationship Specialty Start Date End Date Jose G Hart MD [address] [place] [phone] PCP - General 03/06/18 12/07/22 Carmel Heard MD [address] [place] [address] PCP - General 12/08/22 documented as of this encounter
--- OUTSIDE RECORDS SUMMARY | 2025-05-20 18:13 | XMS_ITS | Encounter Summary ---
Author Organization [facility] Address [address] [facility] [place] [address] Care Team Providers Care Technician Helper Instrument Name Role Phone Carmel Heard MD Primary Care Provider [phone] Encounter Details Date Type Department Care Team (Late st Contact Info) Description 07/23/2024 Telephone [facility] - Endocrinology [address] [place] [address], [place] [address] Santiago Pizano MD [address] [place] [address] [place] [address] Social History Tobacco Use Types Packs/Day Years Used Date Smoking Tobacco: Every Day Smokeless Tobacco: Never Alcohol Use Standard Drinks/Week Comments No 0 (1 standard drink = 0.6 oz pur e alcohol) PHQ-2 Answer Date Recorded PHQ2 TOTAL SCORE 0 04/11/2023 Comments No Sex and Gender Information Value Date Recorded Sex Assigned at Not on file Legal Sex Female 6:25 AM PILE DRIVER Gender Identity Not on file Sexual Orientation Not on file documented as of this encounter Miscellaneous Notes * Telephone Encounter - Debra Hendricks - 07/23/2024 1:28 PM CST Patient called to get a message to Dr. Pizano. Patient needs a new prescription for her HumaLOG. Pharmacy states it is not written correctly and Insurance refuses to fill it as is. Needs a new one sent over. Patient is almost out, on her last cartridge. [id number] - [id number] [facility] [phone] [place] Call back number is [phone] DRIVER documented in this encounter Plan of Treatment Upcoming Encounters Date Type Department Care Team (Late st Contact Info) Description 10/21/2025 1:00 PM PILE DRIVER Office Visit [facility] - Endocrinology [address] [place] [address], [place] [address] Santiago Pizano MD [address] [place] [address] [place] [address] documented as of this encounter Visit Diagnoses Diagnosis Type 1 diabetes mellitus with hyperglycemia (HCC) Type I (juvenile type) diabetes mellitus without mention of complication, not stated as uncontrolled documented in this encounter Care Teams Technician Helper Instrument Relationship Specialty Start Date End Date Carmel Heard MD [address] [place] [phone] PCP - General 12/08/22 documented as of this encounter
--- OUTSIDE RECORDS SUMMARY | 2025-05-20 18:13 | XMS_ITS | Patient Health Record ---
Author Organization [facility] Address [address] [place] [address] Care Team Providers Care Wheat And Oats Flake Miller Name Role Phone Julio Cesar Longoria Primary Care Provider [phone] Reason For Referral No Information Plan Of Treatment No Information
--- OUTSIDE RECORDS SUMMARY | 2025-05-20 18:13 | XMS_ITS | Encounter Summary ---
Author Organization [facility] Address [address] [place] [address] Care Team Providers Care Tape Stringer Name Role Phone Carmel Heard MD Primary Care Provider [phone] Encounter Details Date Type Department Care Team (Late Contact Info) Description 04/12/2023 Telephone [facility] - Centralized Scheduling [address] [place] [address] Santiago Pizano MD [facility] [address] [place] [address] Social History Tobacco Use Types Packs/Day Years Used Date Smoking Tobacco: Every Day Smokeless Tobacco: Never Alcohol Use Standard Drinks/Week Comments No 0 (1 standard drink = 0.6 oz pur e alcohol) PHQ-2 Answer Date Recorded PHQ2 TOTAL SCORE 0 04/11/2023 Comments No Sex and Gender Information Value Date Recorded Sex Assigned at Not on file Legal Sex Female 6:25 AM VOCATIONAL AIDE Gender Identity Not on file Sexual Orientation Not on file documented as of this encounter Miscellaneous Notes * Telephone Encounter - Karen Clay - 04/12/2023 3:53 PM CDT Current Provider name:SHERWIN Reason for call: Pt mother called to schedule appointment for dexcom on how to use it. Patient Call Back number: [phone] documented in this encounter Plan of Treatment Upcoming Encounters Date Type Department Care Team (Late Contact Info) Description 10/21/2025 1:00 PM VOCATIONAL AIDE Office Visit [facility] - Endocrinology [address] [facility], [place] [address] Santiago Pizano MD [address] [place] [address] 2L Div [place] [address] documented as of this encounter Visit Diagnoses Not on filedocumented in this encounter Care Teams Tape Stringer Relationship Specialty [place] [address] [place] [phone] PCP - General 12/08/22 documented as of this encounter
--- OUTSIDE RECORDS SUMMARY | 2025-05-20 18:13 | XMS_ITS | Encounter Summary ---
Author Organization [facility] Address [address] [place] [address] Care Team Providers Care Diagnostic Technologist Name Role Phone Jose G Hart MD Primary Care Provider [phone] Carmel Heard MD Primary Care Provider [phone] Encounter Details Date Type Department Care Team ([facility] Contact Info) Description 10/14/2022 Telephone [facility] [address] [place] [address] Carrie Porter, NISHI Social History Tobacco Use Types Packs/Day Years Used Date Smoking Tobacco: Every Day Smokeless Tobacco: Never Alcohol Use Standard Drinks/Week Comments No 0 (1 standard drink = 0.6 oz pur e alcohol) Comments No Sex and Gender Information Value Date Recorded Sex Assigned at Not on file Legal Sex Female 6:25 AM JOB SITE SUPERINTENDENT Gender Identity Not on file Sexual Orientation Not on file documented as of this encounter Plan of Treatment Upcoming Encounters Date Type Department Care Team ([facility] Contact Info) Description 10/21/2025 1:00 PM JOB SITE SUPERINTENDENT Office Visit [facility] - Endocrinology [address] [place] [address], [place] [phone] Santiago Pizano MD [address] [place] [address] [place] [address] documented as of this encounter Visit Diagnoses Not on filedocumented in this encounter Care Teams Diagnostic Technologist Relationship Specialty Start Date End Date Jose G Hart MD [address] [place] [address] PCP - General 03/06/18 12/07/22 Carmel Heard MD [address] [place] [address] PCP - General 12/08/22 documented as of this encounter
--- OUTSIDE RECORDS SUMMARY | 2025-05-20 18:13 | XMS_ITS | Encounter Summary ---
Author Organization [facility] Address [address] [facility] [place] [address] Care Team Providers Care Telephone Installer Name Role Phone Jose G Hart MD Primary Care Provider [phone] Carmel Heard MD Primary Care Provider [phone] Encounter Details Date Type Department Care Team (Late Contact Info) Description 03/11/2022 Telephone [facility], Diabetes and Metabolism [address] [place] [phone] Santiago Pizano MD [address] [place] [address] 2L [place] [address] Social History Tobacco Use Types Packs/Day Years Used Date Smoking Tobacco: Every Day Smokeless Tobacco: Never Alcohol Use Standard Drinks/Week Comments No 0 (1 standard drink = 0.6 oz pur e alcohol) Comments No Sex and Gender Information Value Date Recorded Sex Assigned at Not on file Legal Sex Female 6:25 AM HIDE TANNER Gender Identity Not on file Sexual Orientation Not on file documented as of this encounter Plan of Treatment Upcoming Encounters Date Type Department Care Team (Late Contact Info) Description 10/21/2025 1:00 PM HIDE TANNER Office Visit [facility] Endocrinology [address] [place] [phone] Santiago Pizano MD [address] [place] [address] 2L Div [place] [address] documented as of this encounter Visit Diagnoses Not on filedocumented in this encounter Care Teams Telephone Installer Relationship Specialty Start Date End Date Jose G Hart MD [address] [place] [phone] PCP - General 03/06/18 12/07/22 Carmel Heard MD [address] [place] [address] PCP - General 12/08/22 documented as of this encounter
[2025-05-20 18:15] LABS: Anion Gap 4 mmol/L (4-12); Blood Urea Nitrogen 16 mg/dL (7-17); Calcium 9.3 mg/dL (8.4-10.2); Carbon Dioxide 32 mmol/L (22-30); Chloride 102 mmol/L (98-107); Estimated CRCL calculation 81 ml/min; Estimated Glomerular Filt Rate > 60; Glucose 199 mg/dL (65-110); Potassium 4.0 mmol/L (3.4-5.0); Sodium 138 mmol/L (137-145)
--- OUTSIDE RECORDS SUMMARY | 2025-05-20 19:00 | XMS_ITS | Encounter Summary ---
Author Organization [facility] Address [address] [place] [address] Care Team Providers Care Bowling Or Skating Front Desk Clerk Name Role Phone Carmel Heard MD Primary Care Provider [phone] Encounter Details Date Type Department Care Team (Late Contact Info) Description 04/12/2023 Telephone [facility] Scheduling [address] [place] [address] Santiago Pizano MD [facility] [address] [place] [address] Social History Tobacco Use Types Packs/Day Years Used Date Smoking Tobacco: Every Day Smokeless Tobacco: Never Alcohol Use Standard Drinks/Week Comments No 0 (1 standard drink = 0.6 oz pur e alcohol) PHQ-2 Answer Date Recorded PHQ2 TOTAL SCORE 0 04/11/2023 Comments No Sex and Gender Information Value Date Recorded Sex Assigned at Not on file Legal Sex Female 6:25 AM QUALITY COMPLIANCE CONSULTANT Gender Identity Not on file Sexual Orientation Not on file documented as of this encounter Miscellaneous Notes * Telephone Encounter - Karen Clay - 04/12/2023 3:53 PM CDT Current Provider name:SHERWIN Reason for call: Pt mother called to schedule appointment for dexcom on how to use it. Patient Call Back number: [phone] documented in this encounter Plan of Treatment Upcoming Encounters Date Type Department Care Team (Late Contact Info) Description 10/21/2025 1:00 PM QUALITY COMPLIANCE CONSULTANT Office Visit [facility] End[facility]ology [address] [facility], [place] [address] Santiago Pizano MD [address] [place] [address] 2L Div [place] [address] documented as of this encounter Visit Diagnoses Not on filedocumented in this encounter Care Teams Bowling Or Skating Front Desk Clerk Relationship Specialty [place] [address] [place] [phone] PCP - General 12/08/22 documented as of this encounter
--- OUTSIDE RECORDS SUMMARY | 2025-05-20 19:00 | XMS_ITS | Encounter Summary ---
Author Organization [facility] Address [address] [place] [address] Care Team Providers Care Cover Mat Machine Operator Name Role Phone Jose G Hart MD Primary Care Provider [phone] Carmel Heard MD Primary Care Provider [phone] Encounter Details Date Type Department Care Team ([facility] Contact Info) Description 10/14/2022 Telephone [facility] [address] [place] [address] Carrie Porter, NISHI Social History Tobacco Use Types Packs/Day Years Used Date Smoking Tobacco: Every Day Smokeless Tobacco: Never Alcohol Use Standard Drinks/Week Comments No 0 (1 standard drink = 0.6 oz pur e alcohol) Comments No Sex and Gender Information Value Date Recorded Sex Assigned at Not on file Legal Sex Female 6:25 AM ELECTRONIC RESOURCES LIBRARIAN Gender Identity Not on file Sexual Orientation Not on file documented as of this encounter Plan of Treatment Upcoming Encounters Date Type Department Care Team ([facility] Contact Info) Description 10/21/2025 1:00 PM ELECTRONIC RESOURCES LIBRARIAN Office Visit [facility] - Endocrinology [address] [place] [address], [place] [phone] Santiago Pizano MD [address] [place] [address] [place] [address] documented as of this encounter Visit Diagnoses Not on filedocumented in this encounter Care Teams Cover Mat Machine Operator Relationship Specialty Start Date End Date Jose G Hart MD [address] [place] [address] PCP - General 03/06/18 12/07/22 Carmel Heard MD [address] [place] [address] PCP - General 12/08/22 documented as of this encounter
--- OUTSIDE RECORDS SUMMARY | 2025-05-20 19:00 | XMS_ITS | Encounter Summary ---
Author Organization [facility] Address [address] [facility] [place] [address] Care Team Providers Care Service Trainer Name Role Phone Carmel Heard MD Primary Care Provider Encounter Details Date Type Department Care Team (Late Contact Info) Description 05/03/2023 Telephone [facility] Scheduling [address] [place] [phone] Carrie Porter RN Social History Tobacco Use [...] on file Legal Sex Female 6:25 AM POWER LINE LINEMAN Gender Identity Not on file Sexual Orientation Not on file documented as of this encounter Plan of Treatment Upcoming Encounters Date Type Department Care Team (Late Contact Info) Description 10/21/2025 1:00 PM POWER LINE LINEMAN Office Visit [facility] Endocrinology [address] [place] [address], [facility] [place] [phone] Santiago Pizano MD [address] [place] [address] documented as of this encounter Visit Diagnoses Not on filedocumented in this encounter Care Teams Service Trainer Relationship Specialty Start Date End Date Carmel Heard MD [address] [place] [address] PCP - General 12/08/22 documented as of this encounter
--- OUTSIDE RECORDS SUMMARY | 2025-05-20 19:00 | XMS_ITS | Clinical Summary ---
Author Organization [facility] Address [address] [facility] [place] [address] Care Team Providers Care Bobbin Winder Name Role Phone Carmel Heard MD Primary Care Provider Source Comments [facility],non-owned Affiliates and Associated Physician Practices is amultiple site organization consisting of ambulatory clinics and hospital sitesin [place], [place], [place] and [place]. This disclosure is being madepursuant to the Care Everywhere program and may not contain all informatio navailable regarding this patient. Last updated 18.[facility] Allergies Active Allergy Reactions Criticality Noted Date [...] fluticasone propionate (FLONASE) 50 MCG/ACT nasal spray [place] 1 (one) spray into each nostril once [...] 11 08/24/20 24 Active Continuous Glucose Sensor ([employer] G7 Sensor) MISCIndications:Ty pe 1 diabetes mellitus [...] 05/09/2025 Telephone [facility] Endocrinology [address] [place] [phone] Santiago Pizano MD Question 04/15/2025 1:20 PM CDT [facility] [address] [place] [phone] Santiago Pizano MD Type 1 diabetes mellitus with hyperglycemia (HCC) (Primary Dx) 04/15/2025 Travel 03/17/2025 Refill [facility] - Endocrinology [address] [place] [phone] Santiago Pizano MD Refill Request 02/22/2025 Travel [...] on file Legal Sex Female 6:25 AM GEAR TECHNICIAN Gender Identity Not on file Sexual Orientation Not on file Last Filed Vital Signs Vital Sign Reading Time Taken Comments Blood Pressure 127/77 04/15/2025 1:07 PM CDT Pulse 87 04/15/2025 1:07 PM CDT Temperature 37 C (98.6 F) 08/18/2023 1:23 PM GEAR TECHNICIAN Respiratory Rate 18 08/18/2023 1:23 PM GEAR TECHNICIAN Oxygen Saturation 96% 04/15/2025 1:07 PM CDT Inhaled Oxygen Concentration - - Weight 62.6 kg (138 lb) 04/15/2025 1:07 PM CDT Height 165.1 cm (5' 5) 04/15/2025 1:07 PM CDT Body Mass Index 22.96 04/15/2025 1:07 PM CDT Plan of Treatment Upcoming Encounters Date Type Department Care Team (Late st Contact Info) Description 10/21/2025 1:00 PM GEAR TECHNICIAN Office Visit [facility] - Endocrinology [address] [place] [address], [place] [address] Santiago Pizano MD [address] [place] [address] [place] [address] Health Maintenance Due Date Last Done Comments [...] (AMB) [facility] (04/15/2025 1:13 PM CDT) Pathologist [facility] Hemoglobin A1c POCT 9.0 % [address] BLOOD SPECIMEN / Unknown 04/15/2025 1:13 PM CDT Santiago Pizano MD LAB - POINT OF CARE ORDERABLES Final Result [address], [place] [address], [facility] [phone] * CREATININE BLOOD (EXTERNAL RESULT ENTRY) (07/22/2021) [...] ordering physician and is also available on [employer], the Radiology Department's computerized picture archive system [...] the orderingphysician and is also available on [employer], the Radiology Department'[employer] picture archive system Comparison: None. BONE MINERAL [...] King on 01/27/2016 2:[address] JCAE Odell M.D. have personally reviewed and interpreted thisexamination/study. This report was electronically signed by JACE DE SANTIAGO M.D. on 01/27/20163:50 PM . Santiago CRAVEN ORDERABLES Final Result from Last 3 Months or Most Recently Relevant to Health Maintenance Insurance Care Teams Bobbin Winder Relationship Specialty [place] [address] [place], [place] [phone] PCP - General 12/08/22
--- OUTSIDE RECORDS SUMMARY | 2025-05-20 19:00 | XMS_ITS | Encounter Summary ---
Author Organization [facility] Address [address] [place] [address] Care Team Providers Care Caretaker Grounds Name Role Phone Carmel Heard MD Primary Care Provider [phone] Encounter Details Date Type Department Care Team (Late st Contact Info) Description 07/23/2024 Telephone [facility] - Endocrinology [address] [place] [address], [place] [address] Santiago Pizano MD [address] [place] [address] [place] [address] Social History Tobacco Use Types Packs/Day Years Used Date Smoking Tobacco: Every Day Smokeless Tobacco: Never Alcohol Use Standard Drinks/Week Comments No 0 (1 standard drink = 0.6 oz pur e alcohol) PHQ-2 Answer Date Recorded PHQ2 TOTAL SCORE 0 04/11/2023 Comments No Sex and Gender Information Value Date Recorded Sex Assigned at Not on file Legal Sex Female 6:25 AM LOCOMOTIVE OPERATOR HELPER Gender Identity Not on file Sexual Orientation [...] is almost out, on her last cartridge. [id number] - [id number] [facility] [phone] [place] Call back number is [phone] MOTIVE OPERATOR HELPER documented in this encounter Plan of Treatment Upcoming Encounters Date Type Department Care Team (Late st Contact Info) Description 10/21/2025 1:00 PM LOCOMOTIVE OPERATOR HELPER Office Visit [facility] - Endocrinology [address] [place] [address], [place] [address] Santiago Pizano MD [address] [place] [address] [place] [address] documented as of this encounter Visit Diagnoses Diagnosis Type 1 diabetes mellitus with hyperglycemia (HCC) Type I (juvenile type) diabetes mellitus without mention of complication, not stated as uncontrolled documented in this encounter Care Teams Caretaker Grounds Relationship Specialty Start Date End Date Carmel Heard MD [address] [place] [phone] PCP - General 12/08/22 documented as of this encounter
--- OUTSIDE RECORDS SUMMARY | 2025-05-20 19:00 | XMS_ITS | Clinical Summary ---
Author Organization [facility] Address [address] [place] [address] Care Team Providers Care Market Development Trainer Name Role Phone Carmel Heard MD [...] Type Department Care Team Description 03/04/2025 Telephone [facility] Neurology [address] [place] [phone] Aretha Marvin NP Additional Services Or Orders from Last 3 Months Immunizations Immunization Administration Dates Next Due Influenza, Trivalent, Preservative Free, Intramu scular 07/09/2006 Pneumococcal Polysaccharide PPV23 07/09/2005 Surgical History Surgery Date Site/Laterality Comments VT LIG/TRNSXJ FLP TUBE ABDL/ VAG APPR UNI/BI Tubal Ligation - (Added by [facility]) [place] CRANIECTOMY W/EXCISION TUMOR/OTH BONE LESION SKL Craniotomy [...] on file Legal Sex Female 1:21 AM CEMETERY LABORER Gender Identity Not on file Sexual Orientation [...] Most Recently Relevant to Health Maintenance [place] [address] Care Teams Market Development Trainer Relationship Specialty Start Date End Date Carmel Heard MD [address] [place] [address] PCP - General Gastroenterology 03/12/24
--- OUTSIDE RECORDS SUMMARY | 2025-05-20 19:00 | XMS_ITS | Encounter Summary ---
Author Organization [facility] Address [address] [place] [address] Care Team Providers Care Consulting Actuary Name Role Phone Jose G Hart MD Primary Care Provider [phone] Carmel Heard MD Primary Care Provider [phone] Encounter Details Date Type Department Care Team (Late Contact Info) Description 03/11/2022 Telephone [facility] [address] [place] [address] [phone] Santiago Pizano MD [address] [place] [address] [address] [place] [address] Social History Tobacco Use Types Packs/Day Years Used Date Smoking Tobacco: Every Day Smokeless Tobacco: Never Alcohol Use Standard Drinks/Week Comments No 0 (1 standard drink = 0.6 oz pur e alcohol) Comments No Sex and Gender Information Value Date Recorded Sex Assigned at Not on file Legal Sex Female 6:25 AM [employer] Gender Identity Not on file Sexual Orientation Not on file documented as of this encounter Plan of Treatment Upcoming Encounters Date Type Department Care Team (Late Contact Info) Description 10/21/2025 1:00 PM [employer] Office Visit [facility] - Endocrinology [address] [place] [address] [phone] Santiago Pizano MD [address] [place] [address] [address] [place] [address] documented as of this encounter Visit Diagnoses Not on filedocumented in this encounter Care Teams Consulting Actuary Relationship Specialty Start Date End Date Jose G Hart MD [address] [place] [id number] PCP - General 03/06/18 12/07/22 Carmel Heard MD [address] [place] [address] PCP - General 12/08/22 documented as of this encounter
[2025-05-20] MEDS: MORPHINE SULFATE (*CRX) 2 MG/ML INJ IV PUSH (20:37)
[2025-05-20] MEDS: CLINDAMYCIN 600 MG/D5W 50 ML 600 MG/50 ML PIGGYBACK 100 MG IVPB (20:41)
--- NOTE | 2025-05-20 20:41 | PC.NURSE ---
ok to not get blood cultures prior to abx starting per edp clements
[2025-05-20 21:02] LABS: CRP 1.1 mg/dL (<1.0)
[2025-05-20 21:52] LABS: MRSA (PCR) NOT DETECTED (NOT DETECTE)
--- NOTE | 2025-05-20 23:04 | ADMGEN ---
This patient, Shan Marcos, was admitted to [facility] Surg Room 314-01. Patient/family oriented to hospital policies and general routines including ID bracelet, bed and alarms, visiting hours, pain management, procedures, bathroom and other care routines, personal items, smoking policy, room service/diet, and visiting hours. Information on how to activate the Rapid Response Team has been discussed. Patient/Family are encouraged to report perceived risks to care and to ask questions if they do not understand what they are told or what they should do.
[2025-05-20] MEDS: INSULIN GLARGINE (*BKC) 100 UNITS/ML 14 UNITS SUB-Q (23:54)
[2025-05-21 04:50] VITALS: BP 112/63; PULSE 55; RESP 18; TEMP 36.4; O2SAT 99
[2025-05-21] MEDS: CLINDAMYCIN 900 MG/D5W 50 ML 900 MG/50 ML PIGGYBACK 50 MG IVPB ×3 (05:11→21:36)
[2025-05-21] MEDS: MORPHINE SULFATE (*CRX) 2 MG/ML INJ IV PUSH ×4 (06:05→21:36)
[2025-05-21 06:19] LABS: Hematocrit 40.6 % (37.0-47.0); Hemoglobin 12.7 g/dL (12.0-15.0); Immature Granulocyte Percent A 0.6 % (0-0.5); Lymphocytes Absolute Auto 3.08 K/mm3 (0.9-3.2); Mean Corpuscular HGB Conc 31.3 g/dl (32-36); Mean Corpuscular Hemoglobin 29.3 pg (26-34); Mean Corpuscular Volume 93.5 fl (80-100); Nucleated Red Blood Cells Absolute Auto 0.000 K/mm3 (0.0-0.012); Nucleated Red Blood Cells Perc 0.0 % (0.0-0.2); Platelet Count Result 251 k/mm3 (150-375); Red Blood Count 4.34 M/mm3 (4.2-5.4); White Blood Count 10.7 K/mm3 (4.5-10.0)
[2025-05-21 06:48] LABS: Anion Gap 3 mmol/L (4-12); Blood Urea Nitrogen 14 mg/dL (7-17); Calcium 8.7 mg/dL (8.4-10.2); Carbon Dioxide 22 mmol/L (22-30); Chloride 108 mmol/L (98-107); Estimated CRCL calculation 91 ml/min; Estimated Glomerular Filt Rate > 60; Glucose 225 mg/dL (65-110); Potassium 4.4 mmol/L (3.4-5.0); Sodium 133 mmol/L (137-145)
--- NOTE | 2025-05-21 08:16 | P.HP_ITS ---
H&P: HPI History of Present Illness Date/Time: 05/21/25 02:50 Chief Complaint: Right ear pain Narrative: 65-year-old female with a past medical history of prior recurrent infections, chronic nonallergic rhinitis, insulin-dependent diabetes mellitus, hyperlipidemia, chronic tobacco use, and prior brain surgery age 19 and intellectual disability who presented to the ER with posterior right ear pain. The patient is alert oriented times 3 but is a poor historian in subsequently majority history was obtained from review of past medical records and ER records. Patient was experiencing intermittent sharp stabbing pain just behind her right ear. She has been having pain for a couple of days and is increasing in intensity and frequency. At the time of the ER physicians exam the patient was having some tenderness over the tragus. It been taking ibuprofen at home which is helped with her pain. I was unable to exam the patient is here as she was adamant that she had to run to resting could not wait and I did not have the opportunity to re-evaluate the patient prior to the end of my shift. Patient had not been having any fevers or chills at home and was afebrile on presentation to the ER. She denies any nausea, vomiting or dizziness. She has chronic urinary frequency and occasional urinary incontinence. She smokes daily and was noted to have nonproductive cough at the time of my evaluation but she actually denies any symptoms of cough or shortness of breath. The patient's mother is her legal guardian. Review of Systems 2 Review of Systems: Review of systems limited due to patient intellectual disability [facility] Past Medical History Medical History (Updated 05/21/25 @ 08:47 by Angelica Thompson DO) Chronic nonallergic rhinitis Mixed hearing loss, bilateral Intellectual disability Brain tumor Depression Arthritis Emphysema of lung Diabetes HLD (hyperlipidemia) GERD (gastroesophageal reflux disease) COPD (chronic obstructive pulmonary disease) Surgical History Surgical History Hx of tonsillectomy Hx of craniotomy Family History Family History (Updated 05/21/25 @ 08:33 by Angelica Thompson DO) Father Heart disease Social History Social History (Updated 05/21/25 @ 08:41 by Angelica Thompson DO) Social History: Code status: Full code Guardian/healthcare power of document review attorney: Mother Smoking packs per day: 1 Smoking cigarettes per day: 20.0 Years smoked: 35 Smoking pack-years: 35.00 Smoking status: Current every day smoker Tobacco type: cigarettes Second hand tobacco smoke exposure: No Alcohol intake: never Substance use: never Substance use type: does not use Lack of Transportation: No Lack of Food: Never True Current Housing: I Have Housing Concerned About Future Housing: No Difficulty Paying Gas/Electric Bills: No Difficulty Paying for Meds: No Currently Unemployed: No Education: High School Diploma/GED Difficulty w/ Childcare or Family Care: No Gender identity (if verbalized by the patient): Female Spiritual care concerns: No Meds Home Medications and Allergies Home Medications ?Medication ?Instructions ?Recorded ?Confirmed ?Type atorvastatin 10 mg tablet 10/04/19 05/12/23 History calcium 600 mg (as tablet PO 10/04/19 05/12/23 History carbonate)-vitamin D3 10 mcg (400 unit) tablet insulin glargine 100 unit/mL (3 unit subcut 10/04/19 0 05/12/23 History mL) subcutaneous pen (Basaglar KwikPen U-100 Insulin) insulin lispro 100 unit/mL 1 unit subcut QAM 08/07/20 05/12/23 History subcutaneous pen (Admelog SoloStar U-100 Insulin lispro) Allergies Allergy/AdvReac Type Severity Reaction Status Date / Time No Known Allergies Allergy Mild Verified 05/20/25 16:57 Vital Signs Vital Signs - 24 hr 05/20/25 15:41 05/20/25 16:50 05/20/25 16:56 Temperature 98.1 F Pulse Rate 76 64 60 Respiratory Rate 16 18 10 L Blood Pressure 118/66 128/64 128/64 Pulse Oximetry 100 100 99 Oxygen Delivery Room Air Room Air 05/20/25 17:01 05/20/25 18:11 05/20/25 18:14 Temperature Pulse Rate 61 60 55 L Respiratory Rate 14 16 18 Blood Pressure 128/64 133/67 Pulse Oximetry 100 100 100 Oxygen Delivery 05/20/25 18:15 05/20/25 18:16 05/20/25 18:30 Temperature Pulse Rate 54 L 54 L 56 L Respiratory Rate 10 L 15 17 Blood Pressure 133/67 Pulse Oximetry 100 100 100 Oxygen Delivery 05/20/25 18:31 05/20/25 19:31 05/20/25 19:32 Temperature Pulse Rate 55 L Respiratory Rate 16 Blood Pressure 132/68 124/62 Pulse Oximetry 100 98 Oxygen Delivery 05/20/25 20:39 05/20/25 20:45 05/20/25 21:00 Temperature Pulse Rate 60 65 Respiratory Rate 16 15 Blood Pressure Pulse Oximetry 100 100 Oxygen Delivery 05/20/25 21:01 05/20/25 21:02 05/20/25 21:15 Temperature Pulse Rate 64 61 61 Respiratory Rate 19 16 13 Blood Pressure 121/82 Pulse Oximetry Oxygen Delivery 05/20/25 21:30 05/20/25 21:31 05/20/25 21:45 Temperature 97.8 F Pulse Rate 62 64 Respiratory Rate 16 13 19 Blood Pressure 135/88 121/82 Pulse Oximetry 100 100 100 Oxygen Delivery 05/20/25 22:14 05/21/25 04:50 Temperature 97.4 F L 97.6 F Pulse Rate 59 L 55 L Respiratory Rate 16 18 Blood Pressure 138/86 112/63 Pulse Oximetry 100 99 Oxygen Delivery Exam 2 Narrative: Weight 60.8 kg BMI 22.3 Const: Other: No acute distress, well-developed well-nourished, appears older than stated age, smell strongly of cigarette smoke HENMT: Other: Head is normocephalic atraumatic, mucous membranes are tacky, no oral pharyngeal erythema, tenderness to palpation to the tragus and posterior auricle, tympanic membranes not examined as patient could not wait to go to the bathroom and I did not give back to the room to re-evaluate due to other more emergent patient needs Eyes: Other: Pupils are equal and reactive, no scleral icterus, no conjunctival pallor Neck: Other: No anterior cervical lymphadenopathy Resp: Other: Decreased breath sounds throughout, no increased work of breathing Cardio: Other: Mildly bradycardic, regular rhythm, 2+ bilateral radial pedal pulses GI: Other: Soft, nontender, nondistended, positive bowel sounds Skin: Other: Generalized pallor, non jaundice, thinning hair, tobacco staining of fingernails Neuro: Other: Alert oriented person place and time, speech is clear but slow, no facial asymmetry, normal gait Extrem: Other: No cyanosis, no edema Psych: Other: Impulsive, easily distracted H&P: Results Labs Labs: Short CBC 09/15/25 09/16/25 Range/Units 17:59 05:41 WBC 14.0 H 10.7 H (4.5-10.0) K/mm3 Hgb 13.8 12.7 (12.0-15.0) g/dL Hct 41.8 40.6 (37.0-47.0) % Plt Count 324 251 (150-375) k/mm3 [facility] 05/20/25 05/21/25 17:59 05:41 Sodium 138 133 L Potassium 4.0 4.4 Chloride 102 108 H Carbon Dioxide 32 H 22 BUN 16 14 Creatinine 0.54 L 0.47 L Glucose 199 H 225 H Calcium 9.3 8.7 Laboratory Tests 05/21/25 05:41 05/21/25 05:41 05/20/25 05/20/25 05/20/25 17:59 18:09 20:34 WBC 14.0 H RBC 4.67 Hgb 13.8 Hct 41.8 MCV 89.5 MCH 29.6 MCHC 33.0 RDW 13.8 Plt Count 324 MPV 9.3 Immature Gran % (Auto) 0.6 H Neut % (Auto) 67.5 Lymph % (Auto) 22.1 Mcculloch % (Auto) 7.4 Eos % (Auto) 1.5 Baso % (Auto) 0.9 Lymph # (Auto) 3.09 Mcculloch # (Auto) 1.0 H Eos # (Auto) 0.2 Baso # (Auto) 0.1 Abs Immat Gran (auto) 0.08 H Absolute Neuts (auto) 9.4 H Absolute Nucleated RBC 0.000 Nucleated RBC % 0.0 ESR 16 Sodium 138 Potassium 4.0 Chloride 102 Carbon Dioxide 32 H Anion Gap 4 BUN 16 Creatinine 0.54 L Estim Creat Clear Calc 81 Estimated GFR > 60 Glucose 199 H POC Capillary Glucose 194 H 167 H Calcium 9.3 C-Reactive Protein 1.1 Nasal MRSA (PCR) 05/20/25 05/20/25 05/21/25 20:37 23:41 05:41 WBC 10.7 H RBC 4.34 Hgb 12.7 Hct 40.6 MCV 93.5 MCH 29.3 MCHC 31.3 L RDW 13.8 Plt Count 251 MPV 9.9 Immature Gran % (Auto) 0.6 H Neut % (Auto) 58.4 Lymph % (Auto) 28.9 Mcculloch % (Auto) 8.4 Eos % (Auto) 2.5 Baso % (Auto) 1.2 Lymph # (Auto) 3.08 Mcculloch # (Auto) 0.9 H Eos # (Auto) 0.3 Baso # (Auto) 0.1 Abs Immat Gran (auto) 0.06 H Absolute Neuts (auto) 6.2 Absolute Nucleated RBC 0.000 Nucleated RBC % 0.0 ESR Sodium 133 L Potassium 4.4 Chloride 108 H Carbon Dioxide 22 Anion Gap 3 L BUN 14 Creatinine 0.47 L Estim Creat Clear Calc 91 Estimated GFR > 60 Glucose 225 H POC Capillary Glucose 350 H Calcium 8.7 C-Reactive Protein Nasal MRSA (PCR) Not detected 05/21/25 07:55 WBC RBC Hgb Hct MCV MCH MCHC RDW Plt Count MPV Immature Gran % (Auto) Neut % (Auto) Lymph % (Auto) Mcculloch % (Auto) Eos % (Auto) Baso % (Auto) Lymph # (Auto) Mcculloch # (Auto) Eos # (Auto) Baso # (Auto) Abs Immat Gran (auto) Absolute Neuts (auto) Absolute Nucleated RBC Nucleated RBC % ESR Sodium Potassium Chloride Carbon Dioxide Anion Gap BUN Creatinine Estim Creat Clear Calc Estimated GFR Glucose POC Capillary Glucose 157 H Calcium C-Reactive Protein Nasal MRSA (PCR) Impressions Head CT 05/20/25 17:48 IMPRESSION: 1. 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 Old infarct in the right occipital lobe. Internal Auditory Canal CT 05/20/25 19:06 IMPRESSION: 1. 1.6 cm right parafalcine meningioma. 2. Bilateral mastoid effusions. Assessment and Plan Assessment and plan (1) Other mastoiditis and related conditions, right ear: Code(s): H70.891 - Other mastoiditis and related conditions, right ear Status: Acute (2) Leukocytosis: Qualifiers: Leukocytosis type: unspecified Qualified Code(s): D72.829 - Elevated white blood cell count, unspecified Code(s): D72.829 - Elevated white blood cell count, unspecified Status: Acute (3) Pain of right mastoid: Code(s): H92.01 - Otalgia, right ear Status: Acute (4) Hyperglycemia due to diabetes mellitus: Code(s): E11.65 - Type 2 diabetes mellitus with hyperglycemia Status: Acute Plan Left posterior regular pain and pain knows tragus could be due to early otitis media see or possible mastoiditis. ENT was consulted from the ER who recommends continuing clindamycin. Will check MRSA screen. Will repeat CBC with a.m. labs will check CRP and ESR. Patient does have hyperglycemia with known history of diabetes mellitus. Will continue home long-acting insulin but will decrease dose slightly to avoid possible hypoglycemia with hospitalization in change in diet during hospitalization. Will add moderate dose sliding scale insulin with Accu-Cheks a.c. HS and consistent carbohydrate diet. Will check A1c with a.m. labs. Will provide nicotine patch as needed for symptoms of withdrawal. Patient will be provided with tobacco cessation education. MEDICAL DECISION MAKING NARRATIVE -Spoke with the ED provider in detail regarding patient's evaluation, workup and management -Patient seen and examined at bedside -Collaborated with patient's nurse at the bedside in detail and addressed all concerns -Labs, electrolytes, radiology, investigations and test results personally reviewed and interpreted unless otherwise specified -ED/Consult/Nursing/Ancilliary notes on the chart reviewed and appreciated -Spoke with patient at bedside and diagnosis and plan of care was discussed. All questions answered. Quality VTE Prophylaxis VTE prophylaxis: pharmacologic ordered (Lovenox 40 mg subQ daily.) Hospitalist MIPS Advance Care Plan I have confirmed that the patient's Advanced Care Plan is present, code status is documented, or surrogate decision maker is listed in patient medical record.: Yes Medication Reconciliation I have utilized all available resources to obtain, update and review the patients current medications (includes all prescriptions, OTC, herbals, cannabis, and nutritional supplements).: Yes
[2025-05-21 09:40] VITALS: PULSE 61; O2SAT 98
[2025-05-21] MEDS: ENOXAPARIN 40 MG/0.4 ML SYRINGE SUB-Q (09:40)
[2025-05-21 10:36] LABS: Hemoglobin A1C 8.9 % (<5.7)
--- NOTE | 2025-05-21 11:12 | P.PNCROSS_ITS ---
Event Note Event Note Event Note: Patient is a 65-year-old female was admitted for further treatment possible ma stoiditis. Patient had been seen and assessed previous provider follow-up assessment patient in no acute distress reported she did pain to her right ear, otherwise with no other complaints denied any chest pain, shortness a breath, nausea, vomiting, fever chills. ENT has been consulted greatly appreciates recommendations plan for at least 48 hours of IV clindamycin and then can hopefully transition to oral antibiotic therapy. Labs reviewed WBC down to 10.7 otherwise unremarkable and vital stable. Patient does follow outpatient with ENT due to recurrent ear infections. CT did noted a 1.6 cm right parafalcine meningioma will need monitoring 0 CT outpatient. Will continue with current treatment plan pending any further recommendations from ENT. During my assessment patient denied any further headache or visual disturbances.
[2025-05-21] MEDS: INSULIN ASPART (*BKC) 100 UNITS/ML SUB-Q ×2 (12:26→20:28)
[2025-05-21 14:00] VITALS: BP 144/67; PULSE 60; RESP 18; TEMP 35.7; O2SAT 100
--- NOTE | 2025-05-21 15:25 | WPDCN ---
Assessment and Plan Assessment and plan (1) Temporomandibular joint (TMJ) pain: Qualifiers: Laterality: right Qualified Code(s): M26.621 - Arthralgia of right temporomandibular joint Code(s): M26.629 - Arthralgia of temporomandibular joint, unspecified side Status: Acute (2) Otalgia of right ear: Code(s): H92.01 - Otalgia, right ear Status: Acute (3) Referred otalgia of right ear: Code(s): H92.01 - Otalgia, right ear Status: Acute Plan 65 yo F with right Temporomandibular joint pain and right referred otalgia CT temporal bone :05/20/2025 FINDINGS: There is a 1.6 x 0.9 cm enhancing extra-axial mass at the right frontal falx, consistent with a meningioma. RIGHT TEMPORAL BONE: The internal auditory canal, cochlea, vestibule, semicircular canals, vestibular aqueduct, carotid canal, jugular bulb, facial nerve course, ossicles, Prussak space, scutum, tympanic membrane, and external auditory canal are normal. There is a small right mastoid effusion. LEFT TEMPORAL BONE: The internal auditory canal, cochlea, vestibule, semicircular canals, vestibular aqueduct, jugular bulb, carotid canal, facial nerve course, ossicles, Prussak space, scutum, tympanic membrane, and external auditory canal are normal. There is a left mastoid effusion. IMPRESSION: 1. 1.6 cm right parafalcine meningioma. 2. Bilateral mastoid effusions. Plan: I have reviewed the CT scan temporal bone and I do not think the effusion is the both mastoids could be causing the ear pain for the patient as there is no complete opacity of either mastoid cavities nor there is any active acute mastoiditis Up 1. TMJ instructions: To be provided for the patient on discharge Instructions for Patients with Temporomandibular Disorders (TMJ) Success in treating your temporomandibular joint (TMJ) or associated muscular symptoms depend largely upon the way you treat the involved areas. Following the instructions below will help you to manage your symptoms and aid the healing process. Do?s ? Do breathe through your nose if able, not through your mouth. ? Do rest your tongue against the roof of your mouth for greatest relaxation of your jaw muscles. ? Do maintain good posture at all times (keep your head in the midline over your shoulders). ? If it is painful to open your mouth to brush your teeth, do try using a child?s toothbrush. ? Do sleep on your back with a thin pillow under your head and a small towel roll under your neck. ? Do try to limit opening your mouth to a thumb?s thickness when yawning, laughing, coughing, sneezing or singing. ? Do cut your food into small, bite-size pieces to prevent opening your mouth too wide. ? When in stressful situations, do utilize stress management techniques to prevent unproductive tensing of your jaw, face and neck muscles. Don?ts ? Do not eat any foods that require prolonged chewing (hard crusts of bread, bagels, tough meats or popcorn). ? Do not eat hard ?crunchy? foods (peanuts, corn nuts and raw vegetables) or chew on ice cubes. ? Do not chew gum, even occasionally! ? Do not bite into any foods with your front teeth. ? Do not move your jaw in such a way that it causes the joint to make a clicking, popping or grinding sound. ? Do not bite your fingernails, chew on pencils or pens, bite your cheeks or lips, etc. ? Do not protrude your lower jaw forward when applying lipstick, eating or talking. ? Do not rest your jaw on your hand. ? If you wear a dental splint, do not play with it with your tongue. ? Do not clench or grind your teeth. Keep your lips together but your teeth apart! For more information: www.nidcr.nih.gov 3. neuro surgery consult for the further management of 1.,6 cm right parafalcine meningioma 4. Oral antibiotic Augmentin 875/125 twice daily for 1 week for management of the mastoid effusion HPI Data of Consult Date/Time: 05/21/25 15:25 Requesting Physician: Angelica Thompson DO Primary Care Provider: [facility]IC[facility] Consult Narrative Reason for consult: i was consulted for ear pain in the right side and mastoid effusion Narrative: 65-year-old female with a past medical history of prior recurrent infections, chronic nonallergic rhinitis, insulin-dependent diabetes mellitus, hyperlipidemia, chronic tobacco use, and prior brain surgery age 19 and intellectual disability who presented to the ER with posterior right ear pain. The patient is alert oriented times 3 but is a poor historian in subsequently majority history was obtained from review of past medical records and ER records. Patient was experiencing intermittent sharp stabbing pain just behind her right ear. She has been having pain for a couple of days and is increasing in intensity and frequency. It been taking ibuprofen at home which is helped with her pain. . She denies any nausea, vomiting or dizziness. She has chronic urinary frequency and occasional urinary incontinence. She smokes daily and was noted to have nonproductive cough at the time of my evaluation but she actually denies any symptoms of cough or shortness of breath. She denies vertigo imbalance or ear drainage Review of Systems Review of Systems: All systems reviewed & are unremarkable except as noted in HPI and below Constitutional: Constitutional: Reports as per HPI ENT: Reports as per HPI Respiratory: Respiratory: Reports as per HPI Gastrointestinal: Gastrointestinal: Reports as per HPI PMFSH Past Medical History Medical History (Updated 05/21/25 @ 16:07 by Montana Villela MD) Referred otalgia of right ear Otalgia of right ear Temporomandibular joint (TMJ) pain Chronic nonallergic rhinitis Mixed hearing loss, bilateral Intellectual disability Brain tumor Depression Arthritis Emphysema of lung Diabetes HLD (hyperlipidemia) GERD (gastroesophageal reflux disease) COPD (chronic obstructive pulmonary disease) Surgical History Surgical History Hx of tonsillectomy Hx of craniotomy Family History Family History (Updated 05/21/25 @ 08:33 by Angelica Thompson DO) Father Heart disease Social History Social History (Updated 05/21/25 @ 08:41 by Angelica Thompson DO) Social History: Code status: Full code Guardian/healthcare power of civil attorney: Mother Smoking packs per day: 1 Smoking cigarettes per day: 20.0 Years smoked: 35 Smoking pack-years: 35.00 Smoking status: Current every day smoker Tobacco type: cigarettes Second hand tobacco smoke exposure: No Alcohol intake: never Substance use: never Substance use type: does not use Lack of Transportation: No Lack of Food: Never True Current Housing: I Have Housing Concerned About Future Housing: No Difficulty Paying Gas/Electric Bills: No Difficulty Paying for Meds: No Currently Unemployed: No Education: High School Diploma/GED Difficulty w/ Childcare or Family Care: No Gender identity (if verbalized by the patient): Female Spiritual care concerns: No Meds Home Medications and Allergies Home Medications ?Medication ?Instructions ?Recorded ?Confirmed ?Type atorvastatin 10 mg tablet 20 mg PO DAILY 10/04/19 05/21/25 History calcium 600 mg (as tablet PO 10/04/19 05/12/23 History carbonate)-vitamin D3 10 mcg (400 unit) tablet Held on 05/21/25. Instructions: Colonoscopy tuesday insulin glargine 100 unit/mL (3 20 unit subcut QAM 10/04/19 05/21/25 History mL) subcutaneous pen (Basaglar KwikPen U-100 Insulin) insulin lispro 100 unit/mL 1 unit subcut QAM 08/07/20 05/21/25 History subcutaneous pen (Admelog SoloStar U-100 Insulin lispro) cetirizine 10 mg tablet 10 mg PO DAILY 05/21/25 05/21/25 History famotidine 20 mg tablet 20 mg PO DAILY 05/21/25 05/21/25 History Allergies Allergy/AdvReac Type Severity Reaction Status Date / Time No Known Allergies Allergy Mild Verified 05/20/25 16:57 Vital Signs Vital Signs - 24 hr 05/20/25 15:41 05/20/25 16:50 05/20/25 16:56 Temperature 36.7 C Pulse Rate 76 64 60 Respiratory Rate 16 18 10 L Blood Pressure 118/66 128/64 128/64 Pulse Oximetry 100 100 99 Oxygen Delivery Room Air Room Air 05/20/25 17:01 05/20/25 18:11 05/20/25 18:14 Temperature Pulse Rate 61 60 55 L Respiratory Rate 14 16 18 Blood Pressure 128/64 133/67 Pulse Oximetry 100 100 100 Oxygen Delivery 05/20/25 18:15 05/20/25 18:16 05/20/25 18:30 Temperature Pulse Rate 54 L 54 L 56 L Respiratory Rate 10 L 15 17 Blood Pressure 133/67 Pulse Oximetry 100 100 100 Oxygen Delivery 05/20/25 18:31 05/20/25 19:31 05/20/25 19:32 Temperature Pulse Rate 55 L Respiratory Rate 16 Blood Pressure 132/68 124/62 Pulse Oximetry 100 98 Oxygen Delivery 05/20/25 20:39 05/20/25 20:45 05/20/25 21:00 Temperature Pulse Rate 60 65 Respiratory Rate 16 15 Blood Pressure Pulse Oximetry 100 100 Oxygen Delivery 05/20/25 21:01 05/20/25 21:02 05/20/25 21:15 Temperature Pulse Rate 64 61 61 Respiratory Rate 19 16 13 Blood Pressure 121/82 Pulse Oximetry Oxygen Delivery 05/20/25 21:30 05/20/25 21:31 05/20/25 21:45 Temperature 36.6 C Pulse Rate 62 64 Respiratory Rate 16 13 19 Blood Pressure 135/88 121/82 Pulse Oximetry 100 100 100 Oxygen Delivery 05/20/25 22:14 05/21/25 04:50 05/21/25 09:40 Temperature 36.3 C L 36.4 C Pulse Rate 59 L 55 L 61 Respiratory Rate 16 18 Blood Pressure 138/86 112/63 Pulse Oximetry 100 99 98 Oxygen Delivery Room Air 05/21/25 14:00 Temperature 35.7 C L Pulse Rate 60 Respiratory Rate 18 Blood Pressure 144/67 H Pulse Oximetry 100 Oxygen Delivery Exam Const: General: cooperative, healthy appearing, comfortable, no acute distress, well developed, alert, awake and Physically active Orientation/consciousness: patient oriented x3 HENMT: Head: normocephalic and atraumatic Ears: external ears normal, TM's normal bilaterally, TM normal on the right, TM normal on the left, EAC's normal, mastoids normal and other (Tender right-sided temporomandibular joint) Face/Nose/Sinus: Normal external nose present, Normal nares present and Normal nasal mucous membranes and turbinates present Mouth: Yes Normal oral and palatal mucosa present, Yes lip normal and Yes tongue normal Other: Tender right-sided temporomandibular joint, bilateral intact tympanic membranes no signs of active middle ear infection or mastoid infection, no tenderness could be seen on bilateral mastoid palpation no tenderness over the auricle ,or the tragus bilaterally Eyes: General: appearance normal, both eyes and all related structures Neck: Neck: normal visual inspection, full ROM and trachea midline Resp: Effort & Inspection: normal respiratory effort and able to speak in complete sentences Cardio: Rate: regular rate Neuro: General: oriented to person, oriented to place, oriented to time and patient oriented x3 Results Labs 05/21/25 05:41 05/21/25 05:41 Labs: Short CBC 05/20/25 05/21/25 Range/Units 17:59 05:41 WBC 14.0 H 10.7 H (4.5-10.0) K/mm3 Hgb 13.8 12.7 (12.0-15.0) g/dL Hct 41.8 40.6 (37.0-47.0) % Plt Count 324 251 (150-375) k/mm3 BMP 05/20/25 05/21/25 17:59 05:41 Sodium 138 133 L Potassium 4.0 4.4 Chloride 102 108 H Carbon Dioxide 32 H 22 BUN 16 14 Creatinine 0.54 L 0.47 L Glucose 199 H 225 H Calcium 9.3 8.7
--- NOTE | 2025-05-21 16:03 | PC.NURSE ---
Patients daughter called to verify patient medications. Daughter stated list of meds that patient is taking but also said there are some she is not aware of because they are on hold because of the colonoscopy she is having on tuesday RN asked daughter to bring complete list of medications with her when she comes to visit.
[2025-05-21 20:00] VITALS: PULSE 60; RESP 16; O2SAT 97
[2025-05-21 20:04] VITALS: BP 110/67; PULSE 60; RESP 16; TEMP 36.6; O2SAT 97
[2025-05-21] MEDS: INSULIN GLARGINE (*BKC) 100 UNITS/ML 14 UNITS SUB-Q (20:28)
--- NOTE | 2025-05-21 23:19 | PM.EVENT ---
Event Note Event Note Event Note: IV access on patient was lost, patient is a very difficult stick and the nurses have tried several times antibiotics switched to p.o. Augmentin
[2025-05-22 04:57] VITALS: BP 106/68; PULSE 68; RESP 16; TEMP 36.5; O2SAT 100
[2025-05-22 05:53] LABS: Hematocrit 38.7 % (37.0-47.0); Hemoglobin 12.6 g/dL (12.0-15.0); Mean Corpuscular HGB Conc 32.6 g/dl (32-36); Mean Corpuscular Hemoglobin 29.5 pg (26-34); Mean Corpuscular Volume 90.6 fl (80-100); Platelet Count Result 286 k/mm3 (150-375); Red Blood Count 4.27 M/mm3 (4.2-5.4); White Blood Count 10.0 K/mm3 (4.5-10.0)
[2025-05-22 06:20] LABS: Alanine Aminotransferase 14 U/L (6-35); Albumin Level 3.6 g/dL (3.5-5.1); Alkaline Phosphatase 97 U/L (38-126); Anion Gap 1 mmol/L (4-12); Aspartate Amino Transferase 19 U/L (14-36); Bilirubin,Total 0.3 mg/dL (0.2-1.3); Blood Urea Nitrogen 11 mg/dL (7-17); Calcium 8.7 mg/dL (8.4-10.2); Carbon Dioxide 29 mmol/L (22-30); Chloride 106 mmol/L (98-107); Estimated CRCL calculation 83 ml/min; Estimated Glomerular Filt Rate > 60; Glucose 92 mg/dL (65-110); Magnesium 1.9 mg/dL (1.6-2.3); Potassium 4.3 mmol/L (3.4-5.0); Sodium 136 mmol/L (137-145); Total Protein 6.1 g/dL (6.3-8.2)
[2025-05-22] MEDS: ENOXAPARIN 40 MG/0.4 ML SYRINGE SUB-Q (09:35)
[2025-05-22] MEDS: ACETAMINOPHEN 325 MG TABLET 650 MG PO (13:34)
[2025-05-22 14:00] VITALS: BP 121/47; PULSE 60; RESP 18; TEMP 37.3; O2SAT 100
--- NOTE | 2025-05-22 15:18 | P.DS_ITS ---
DS: Admitting Diagnosis Discharge Date 05/22/2025 Admitting Diagnosis right ear mastoiditis DS: Discharge Diagnosis Discharge Diagnosis (1) Other mastoiditis and related conditions, right ear: Code(s): H70.891 - Other mastoiditis and related conditions, right ear Status: Acute Assessment and Plan: ENT consulted IV clindamycin pain control discharge home with PO Augmentin x 9 days to complete course TMJ precautions provided to patient on discharge per ENT request (2) Leukocytosis: Qualifiers: Leukocytosis type: unspecified Qualified Code(s): D72.829 - Elevated white blood cell count, unspecified Code(s): D72.829 - Elevated white blood cell count, unspecified Status: Acute Assessment and Plan: resolved (3) Pain of right mastoid: Code(s): H92.01 - Otalgia, right ear Status: Acute Assessment and Plan: pain control (4) Hyperglycemia due to diabetes mellitus: Code(s): E11.65 - Type 2 diabetes mellitus with hyperglycemia Status: Acute Assessment and Plan: continue home insulin avoid hypoglycemia monitor blood sugars DS: Summary Hospital Course Reason for hospitalization: posterior right ear pain Hospital Course: Patient is a 65 year old female with PMH of prior recurrent infections, chronic nonallergic rhinitis, insulin-dependent diabetes mellitus, hyperlipidemia, chronic tobacco use, and prior brain surgery age 19 and intellectual disability. Patient presented to the ER with complaints of posterior right ear pain. Patient was noted to have some tenderness over the tragus when examined by the ER physician. Patients CT showed a 1.6 cm right parafalcine meningioma and Bilateral mastoid effusions. Patient was admitted for suspected right ear mastoiditis and leukocytosis. ENT was consulted. Patient was treated with IV clindamycin. Patients pain is improving, although difficult to assess at times as patient is a poor historian. ENT requested TMJ precautions be provided to patient on discharge. Patient switched from IV to PO Augmentin x 9 days on discharge ot complete antibiotic course. Patient discharged home and will follow up with her PCP within 1-2 weeks of discharge. Time Spent with Patient Time attestation: Total time spent providing and/or coordinating discharge services: Exam Narrative: Weight 60.8 kg BMI 22.3 Const: Other: No acute distress, well-developed well-nourished, appears older than stated age HENMT: Face/Nose/Sinus: Normal nares present Mouth: Yes moist mucous m embranes Eyes: Other: Pupils are equal and reactive, no scleral icterus, no conjunctival pallor Neck: Other: No anterior cervical lymphadenopathy Resp: Other: Decreased breath sounds throughout, no increased work of breathing Cardio: Other: Mildly bradycardic, regular rhythm, 2+ bilateral radial pedal pulses GI: Other: Soft, nontender, nondistended, positive bowel sounds Skin: Other: Generalized pallor, non jaundice, thinning hair, tobacco staining of fingernails Neuro: Other: Alert oriented person place and time, speech is clear but slow, no facial asymmetry, normal gait Extrem: Other: No cyanosis, no edema Psych: Other: Impulsive, easily distracted DS: Data Data Completed and Pending Labs on day of discharge: Labs from last 24 hours 05/22/25 05/22/25 05/22/25 11:47 08:58 07:32 WBC RBC Hgb Hct MCV MCH MCHC RDW Plt Count MPV Sodium Potassium Chloride Carbon Dioxide Anion Gap BUN Creatinine Estim Creat Clear Calc Estimated GFR Glucose POC Capillary Glucose 159 H 193 H 61 L Calcium Magnesium Total Bilirubin AST ALT Alkaline Phosphatase Total Protein Albumin 05/22/25 05/22/25 05/21/25 05:41 00:20 19:50 WBC 10.0 RBC 4.27 Hgb 12.6 Hct 38.7 MCV 90.6 MCH 29.5 MCHC 32.6 RDW 13.6 Plt Count 286 MPV 9.5 Sodium 136 L Potassium 4.3 Chloride 106 Carbon Dioxide 29 Anion Gap 1 L BUN 11 Creatinine 0.52 L Estim Creat Clear Calc 83 Estimated GFR > 60 Glucose 92 POC Capillary Glucose 143 H 361 H Calcium 8.7 Magnesium 1.9 Total Bilirubin 0.3 AST 19 ALT 14 Alkaline Phosphatase 97 Total Protein 6.1 L Albumin 3.6 05/21/25 05/21/25 16:21 15:37 WBC RBC Hgb Hct MCV MCH MCHC RDW Plt Count MPV Sodium Potassium Chloride Carbon Dioxide Anion Gap BUN Creatinine Estim Creat Clear Calc Estimated GFR Glucose POC Capillary Glucose 129 H 69 Calcium Magnesium Total Bilirubin AST ALT Alkaline Phosphatase Total Protein Albumin Discharge Plan Discharge Attending physician on discharge: Mere Varghese Consulting providers: Lauri Munguia; [place] Villela; Symone Moyer; Jarred Jones; Jo Lentz; Richard Godoy V. Discharging Clinician: Ansley Hess Patient Disposition: Home Activity: as tolerated Diet: diabetic Wound Care Instructions: other - see discharge instructions Discharge Instructions: Instructions for Patients with Temporomandibular Disorders (TMJ) Success in treating your temporomandibular joint (TMJ) or associated muscular symptoms depend largely upon the way you treat the involved areas. Following the instructions below will help you to manage your symptoms and aid the healing process. Do?s ? Do breathe through your nose if able, not through your mouth. ? Do rest your tongue against the roof of your mouth for greatest relaxation of your jaw muscles. ? Do maintain good posture at all times (keep your head in the midline over your shoulders). ? If it is painful to open your mouth to brush your teeth, do try using a child?s toothbrush. ? Do sleep on your back with a thin pillow under your head and a small towel roll under your neck. ? Do try to limit opening your mouth to a thumb?s thickness when yawning, laughing, coughing, sneezing or singing. ? Do cut your food into small, bite-size pieces to prevent opening your mouth too wide. ? When in stressful situations, do utilize stress management techniques to prevent unproductive tensing of your jaw, face and neck muscles. Don?ts ? Do not eat any foods that require prolonged chewing (hard crusts of bread, bagels, tough meats or popcorn). ? Do not eat hard ?crunchy? foods (peanuts, corn nuts and raw vegetables) or chew on ice cubes. ? Do not chew gum, even occasionally! ? Do not bite into any foods with your front teeth. ? Do not move your jaw in such a way that it causes the joint to make a clicking, popping or grinding sound. ? Do not bite your fingernails, chew on pencils or pens, bite your cheeks or lips, etc. ? Do not protrude your lower jaw forward when applying lipstick, eating or talking. ? Do not rest your jaw on your hand. ? If you wear a dental splint, do not play with it with your tongue. ? Do not clench or grind your teeth. Keep your lips together but your teeth apart! For more information: www.nidcr.nih.gov Patient Instructions: Antibiotic Form, How to Stop Smoking (DC) Patient Language: Martiniquais Stand Alone Forms: General Discharge Information Follow-up/Referrals: Yaquelin, Collin [Other] Referral Note: call for a follow up appointment with PCP within 1-2 weeks of discharge. At patient's scheduled appointment with neurology on 06/09/2025, please ask them to look at the imaging from this hospital stay as the CT showed a 1.6 cm meningioma. Discharge Medications: New acetaminophen 325 mg Tablet 650 mg PO Q4H PRN (Reason: Mild Pain (1-3) Or Fever) Qty: 30 0RF amoxicillin-pot clavulanate 875-125 mg tablet 1 tablet PO Q12H Qty: 18 0RF Continued insulin lispro [Admelog SoloStar U-100 Insulin] 100 unit/mL insulin pen 1 unit subcut QAM atorvastatin 10 mg tablet 20 mg PO DAILY insulin glargine [Basaglar KwikPen U-100 Insulin] 100 unit/mL (3 mL) insulin pen 20 unit SUBCUT QAM Rx Instructions: 929 cetirizine 10 mg tablet 10 mg PO DAILY famotidine 20 mg tablet 20 mg PO DAILY Discontinued calcium carbonate-vitamin D3 600 mg(1,500mg) -400 unit tablet PO Date of admission: 05/21/25 07:28 Primary Care Provider: YaquelinCollin Admitting Provider: Angelica Thompson Attending physician on admission: Ansley Hess Condition: Stable
== END 2025-05-22 17:05 | disposition home or self-care (01) | DRG 115 ==
LOC: ANHED 20:19 → ANH3MEDSUR 21:03
PROVIDERS: Nurse Practitioner Family; Admitting Provider Internal Medicine; Emergency Provider Student in an Organized Health Care Education/Training Program; Visit Provider Nurse Practitioner Adult Health
DX: H70.891 Other mastoiditis and related conditions, right ear (principal); M26.601 Right temporomandibular joint disorder, unspecified; H92.01 Otalgia, right ear; E78.5 Hyperlipidemia, unspecified; E11.65 Type 2 diabetes mellitus with hyperglycemia; D72.829 Elevated white blood cell count, unspecified; D32.0 Benign neoplasm of cerebral meninges; H90.6 Mixed conductive and sensorineural hearing loss, bilateral; K21.9 Gastro-esophageal reflux disease without esophagitis; J44.9 Chronic obstructive pulmonary disease, unspecified; F79 Unspecified intellectual disabilities; R35.0 Frequency of micturition; R32 Unspecified urinary incontinence; F17.210 Nicotine dependence, cigarettes, uncomplicated; Z79.4 Long term (current) use of insulin; Z98.890 Other specified postprocedural states; Z87.09 Personal history of other diseases of the respiratory system
CPT/HCPCS: 36415; 70450; 70481; 80048; 80053; 82948; 83036; 83735; 85025; 85027; 85652; 86140; 87641; 96365; 96375; 99285; A9270; G0378; J1650; J1815; J2270; Q9967